=== PATIENT | female | born 1930 | race Caucasian/White ===

== ENCOUNTER 2018-01-28 08:47 | Inpatient (IN) | payer MEDICARE ==
[~2018-01-28] VITALS: Ht 152.4 cm; Wt 54.0 kg
[2018-01-28] VITALS (8 sets, daily range): BP systolic 126–197; BP diastolic 67–88; PULSE 81–87; RESP 15–19; TEMP 97.8–99.8; O2SAT 92–99
[2018-01-28] MEDS ORDERED: SODIUM CHLOR 0.9% 1000 ML INJ 1,000 ML IV ONE (09:00)
[2018-01-28] MEDS ORDERED: SODIUM CHLORIDE 0.9% FLUSH 10 ML FLUSH IVF PRN (09:00)
[2018-01-28] MEDS ORDERED: ONDANSETRON HCL 4 MG/2 ML VIAL IVP ONE (09:00)
[2018-01-28] MEDS ORDERED: HYDROmorphone HCL PF 1 MG/ML VIAL IVS ONE (09:00)
[2018-01-28] MEDS ORDERED: VERA80TA PO (09:01)
[2018-01-28] MEDS ORDERED: ASPI-516 PO (09:06)
[2018-01-28] MEDS ORDERED: HYDROmorphone HCL PF 0.5 MG/0.5 ML SYRINGE ONE (09:18)
--- NOTE | 2018-01-28 09:34 | PD ---
HPI Chief Complaint: Fall Time Seen by Provider: 08:59 Travel History International Travel<30 days: No Contact w/Intl Traveler<30days: No Traveled to known affect area: No History of Present Illness HPI 87-year-old female arrives by EMS. She reports a fall last night. She spent the night on the floor. She has severe right hip pain. EMS gave 6 mg of IV morphine which helped marginally. Onset sudden. Pain is constant and slightly worse with palpation/passive range of motion. PFSH Past Medical History Hx Anticoagulant Therapy: Yes (asa ) Cardiovascular Problems: Yes COPD: Yes Diminished Hearing: No Hypertension: Yes Medical other: Yes ([facility]) Respiratory: Yes (COPD) Thyroid Disease: Yes Tetanus Vaccination: > 5 Years Influenza Vaccination: Yes ?: Not Menopausal: Yes : 2 Para: 2 Past Surgical History Cardiac Surgery: Yes ( cardiac stent x1) Cholecystectomy: Yes Other Surgery: Yes (breast implants. ) Social History Alcohol Use: No Tobacco Use: No Substance Use: No Allergies-Medications (Allergen,Severity, Reaction): Coded Allergies: No Known Allergies (Unverified , 01/28/18) Reported Meds & Prescriptions Reported Meds & Active Scripts Active Reported Aspirin 81 Mg Chew 81 Mg PO DAILY Verapamil (Verapamil HCl) 80 Mg Tab 80 Mg PO DAILY Review of Systems Except as stated in HPI: all other systems reviewed are Neg General / Constitutional: No: Fever Physical Exam Narrative GENERAL: 87-year-old female moderate distress secondary to pain Vital Signs Date Time Temp Pulse Resp B/P (MAP) Pulse Ox O2 Delivery O2 Flow Rate FiO2 01/28/18 09:09 86 15 95 Room Air 01/28/18 09:03 18 95 Room Air 01/28/18 08:52 98.1 87 15 197/88 (124) 98 SKIN: Warm and dry. HEAD: Atraumatic. Normocephalic. EYES: Pupils equal and round. No scleral icterus. No injection or drainage. ENT: No nasal bleeding or discharge. Mucous membranes pink and moist. NECK: Trachea midline. No JVD. CARDIOVASCULAR: Regular rate and rhythm. RESPIRATORY: No accessory muscle use. Clear to auscultation. Breath sounds equal bilaterally. GASTROINTESTINAL: Abdomen soft, non-tender, nondistended. Hepatic and splenic margins not palpable. MUSCULOSKELETAL: Right hip is shortened and externally rotated and tender to palpation overlying the radial trochanter. There is 2+ dorsalis pedis bilaterally. NEUROLOGICAL: Awake and alert. No obvious cranial nerve deficits. Motor grossly within normal limits. Five out of 5 muscle strength in the arms and legs. Normal speech. PSYCHIATRIC: Appropriate mood and affect; insight and judgment normal. Data Data Last Documented VS Vital Signs Date Time Temp Pulse Resp B/P (MAP) Pulse Ox O2 Delivery O2 Flow Rate FiO2 01/28/18 09:09 86 15 95 Room Air 01/28/18 08:52 98.1 197/88 (124) Orders Orders Electrocardiogram (01/28/18 08:59) Complete Blood Count With Diff (01/28/18 08:59) Comprehensive Metabolic Panel (01/28/18 08:59) Prothrombin Time / Inr (Pt) (01/28/18 08:59) Act Partial Throm Time (Ptt) (01/28/18 08:59) Urinalysis - C+S If Indicated (01/28/18 08:59) Chest, Single Ap (01/28/18 08:59) Hip, Uni(Ap&Lat) W Ap Pelvis (01/28/18 08:59) Iv Access Insert/Monitor (01/28/18 08:59) Oximetry (01/28/18 08:59) Ecg Monitoring (01/28/18 08:59) Ondansetron Inj (Zofran Inj) (01/28/18 09:00) Sodium Chloride 0.9% Flush (Ns Flush) (01/28/18 09:00) Hydromorphone Pf Inj (Dilaudid Pf Inj) (01/28/18 09:00) Diet Npo (01/29/18 Breakfast) Sodium Chlor 0.9% 1000 Ml Inj (Ns 1000 M (01/28/18 09:00) Creatine Kinase (Cpk) (01/28/18 08:59) ^ Straight Catheter (01/28/18 08:59) Hydromorphone Pf Inj (Dilaudid Pf Inj) (01/28/18 09:18) Ct Brain W/O Iv Contrast(Rout) (01/28/18 10:17) CKMB (01/28/18 09:48) CKMB% (01/28/18 09:48) Admit Order (Ed Use Only) (01/28/18 10:35) Labs Laboratory Tests Test 01/28/18 08:48 01/28/18 09:48 Urine Color YELLOW Urine Turbidity CLEAR Urine pH 5.0 Urine Specific [place] 1.027 Urine Protein TRACE mg/dL Urine Glucose (UA) NEG mg/dL Urine Ketones TRACE mg/dL Urine Occult Blood NEG Urine Nitrite NEG Urine Bilirubin NEG Urine Urobilinogen 2.0 MG/DL Urine Leukocyte Esterase NEG Urine RBC 1 /hpf Urine WBC LESS THAN 1 /hpf Urine Mucus FEW /lpf Microscopic Urinalysis Comment CATH-CULT NOT IND White Blood Count 11.3 TH/MM3 Red Blood Count 4.98 MIL/MM3 Hemoglobin 14.1 GM/DL Hematocrit 42.5 % Mean Corpuscular Volume 85.4 FL Mean Corpuscular Hemoglobin 28.3 PG Mean Corpuscular Hemoglobin Concent 33.1 % Red Cell Distribution Width 15.5 % Platelet Count 214 TH/MM3 Mean Platelet Volume 9.2 FL Neutrophils (%) (Auto) 83.7 % Lymphocytes (%) (Auto) 6.7 % Monocytes (%) (Auto) 9.1 % Eosinophils (%) (Auto) 0.1 % Basophils (%) (Auto) 0.4 % Neutrophils # (Auto) 9.5 TH/MM3 Lymphocytes # (Auto) 0.8 TH/MM3 Monocytes # (Auto) 1.0 TH/MM3 Eosinophils # (Auto) 0.0 TH/MM3 Basophils # (Auto) 0.1 TH/MM3 CBC Comment DIFF FINAL Differential Comment Prothrombin Time 11.0 SEC Prothromb Time International Ratio 1.1 RATIO Activated Partial Thromboplast Time 28.6 SEC Blood Urea Nitrogen 19 MG/DL Creatinine 0.71 MG/DL Random Glucose 138 MG/DL Total Protein 7.2 GM/DL Albumin 3.6 GM/DL Calcium Level 9.2 MG/DL Alkaline Phosphatase 108 U/L Aspartate Amino Transf (AST/SGOT) 164 U/L Alanine Aminotransferase (ALT/SGPT) 74 U/L Total Bilirubin 1.7 MG/DL Sodium Level 142 MEQ/L Potassium Level 3.7 MEQ/L Chloride Level 104 MEQ/L Carbon Dioxide Level 31.9 MEQ/L Anion Gap 6 MEQ/L Estimat Glomerular Filtration Rate 78 ML/MIN Total Creatine Kinase 397 U/L Creatine Kinase MB 9.5 NG/ML Creatine Kinase MB % 2.4 % [facility] Medical Decision Making Medical Screen Exam Complete: Yes Emergency Medical Condition: Yes Medical Record Reviewed: Yes Differential Diagnosis Fracture, dislocation, metabolic abnormality Narrative Course CBC & BMP Diagram 01/28/18 09:48 Total Protein 7.2, Albumin 3.6, Calcium Level 9.2, Alkaline Phosphatase 108, Aspartate Amino Transf (AST/SGOT) 164 H, Alanine Aminotransferase (ALT/SGPT) 74 H, Total Bilirubin 1.7 H Last Impressions Head CT 01/28/18 1017 Signed Impressions: Service Date/Time: Sunday, January 28, 2018 10:09 - CONCLUSION: 1. No acute intracranial abnormality seen. 2. Atrophy. 3. Suspected small vessel ischemic change in the white matter. 4. Old lacunar infarct. Jacob Wolff MD Hip and Pelvis X-Ray 01/28/18 0859 Signed Impressions: Service Date/Time: Sunday, January 28, 2018 09:25 - CONCLUSION: Intertrochanteric right femoral neck fracture. Jacob Wolff MD Chest X-Ray 01/28/18 0859 Signed Impressions: Service Date/Time: Sunday, January 28, 2018 09:29 - CONCLUSION: Suspected medial areas of bibasilar atelectasis. Jacob Wolff MD The patient has a right intertrochanteric hip fracture and will be admitted to the medicine service. Operative repair per discretion of orthopedic service EKG shows sinus rhythm at a rate [address] changes noted Discussed with family medicine residency doctor, Dr. De La Rosa Diagnosis Primary Impression: Hip fracture Qualified Codes: S72.001A - Fracture of unspecified part of neck of right femur, initial encounter for closed fracture Additional Impression: Fall Qualified Codes: W19.XXXA - Unspecified fall, initial encounter Admitting Information Admitting Physician Requests: Admit Dwayne Valles MD January 28, 2018 09:34
--- NOTE | 2018-01-28 09:54 | RADRPT ---
EXAM DATE/TIME: 01/28/2018 09:25 [facility] COMPARISON: No previous studies available for comparison. INDICATIONS : Right hip pain after fall. MEDICAL HISTORY : Hypertension. Chronic obstructive pulmonary disease. SURGICAL HISTORY : Cholecystectomy. Cardiac stent. ENCOUNTER: Initial ACUITY: 2 days PAIN SCORE: 10/10 LOCATION: Right hip. FINDINGS: There is an intertrochanteric right femoral neck fracture. The hip joint is normally aligned. CONCLUSION: Intertrochanteric right femoral neck fracture. Jacob Wolff MD on January 28, 2018 at 9:44 Board Certified Radiologist. This report was verified electronically.
--- NOTE | 2018-01-28 09:56 | RADRPT ---
EXAM DATE/TIME: 01/28/2018 09:29 [facility] COMPARISON: HIP RIGHT (AP&LAT 2/3VWS) W AP PELVIS, January 28, 2018, 9:25. INDICATIONS : Trauma. Post fall. MEDICAL HISTORY : Hypertension. Chronic obstructive pulmonary disease. SURGICAL HISTORY : Cholecystectomy. Cardiac stent. ENCOUNTER: Initial ACUITY: 2 days PAIN SCORE: 0/10 LOCATION: Bilateral chest FINDINGS: The heart size is normal. There is linear density at the medial bases bilaterally likely to atelectas is. No effusions are seen. There is a healed fracture deformity at the right proximal humerus. CONCLUSION: Suspected medial areas of bibasilar atelectasis. Jacob Wolff MD on January 28, 2018 at 9:52 Board Certified Radiologist. This report was verified electronically.
[2018-01-28 10:02] LABS: AUTOMATED NEUTROPHIL # 9.5 TH/MM3 (1.8-7.7); BASOPHIL # 0.1 TH/MM3 (0-0.2); BASOPHIL % 0.4 % (0.0-2.0); EOSINOPHIL % 0.1 % (0.0-4.0); HEMATOCRIT 42.5 % (35.0-46.0); HEMOGLOBIN 14.1 GM/DL (11.6-15.3); LYMPH % 6.7 % (9.0-44.0); LYMPHOCYTE # 0.8 TH/MM3 (1.0-4.8); MEAN CELL VOLUME 85.4 FL (80.0-100.0); MEAN CORPUSCULAR HEMOGLOBIN 28.3 PG (27.0-34.0); MEAN CORPUSCULAR HGB CONC 33.1 % (32.0-36.0); MEAN PLATELET VOLUME 9.2 FL (7.0-11.0); MONO % 9.1 % (0.0-8.0); NEUT % 83.7 % (16.0-70.0); PLATELET COUNT 214 TH/MM3 (150-450); RED BLOOD COUNT 4.98 MIL/MM3 (4.00-5.30); RED CELL DISTRIBUTION WIDTH 15.5 % (11.6-17.2); WHITE BLOOD COUNT 11.3 TH/MM3 (4.0-11.0)
[2018-01-28 10:06] LABS: BILIRUBIN, URINE NEG (NEG); BLOOD, URINE NEG (NEG); GLUCOSE,URINE NEG (NEG); KETONE, URINE TRACE mg/dL (NEG); MUCUS URINE FEW /lpf (OCC); NITRITE,URINE NEG (NEG); URINE COLOR YELLOW (YELLW/STRAW); URINE LEUKOCYTE ESTERASE NEG (NEG)
[2018-01-28 10:12] LABS: INTERNATIONAL NORMALIZED RATIO 1.1 RATIO
[2018-01-28 10:21] LABS: ALBUMIN 3.6 GM/DL (3.4-5.0); ALT (GPT) 74 U/L (10-53); AST (GOT) 164 U/L (15-37); BICARBONATE 31.9 MEQ/L (21.0-32.0); BLOOD UREA NITROGEN 19 MG/DL (7-18); CALCIUM 9.2 MG/DL (8.5-10.1); CHLORIDE 104 MEQ/L (98-107); CREATININE 0.71 MG/DL (0.50-1.00); GLOMERULAR FILTRATION RATE 78 ML/MIN (>89); GLUCOSE,RANDOM 138 MG/DL (74-106); SODIUM (NA) 142 MEQ/L (136-145)
[2018-01-28 10:24] LABS: ALKALINE PHOSPHATASE 108 U/L (45-117); TOTAL BILIRUBIN ADULT 1.7 MG/DL (0.2-1.0); TOTAL PROTEIN 7.2 GM/DL (6.4-8.2)
--- NOTE | 2018-01-28 10:32 | RADRPT ---
EXAM DATE/TIME: 01/28/2018 10:09 [facility] COMPARISON: No previous studies available for comparison. INDICATIONS : Trauma, fall today. RADIATION DOSE: 56.35 CTDIvol (mGy) MEDICAL HISTORY : Hypertension. SURGICAL HISTORY : None. ENCOUNTER: Initial ACUITY: 1 day PAIN SCALE: 4/10 LOCATION: Bilateral head TECHNIQUE: Multiple contiguous axial images were obtained of the head. Using automated exposure control and adj ustment of the mA and/or kV according to patient size, radiation dose was kept as low as reasonably a chievable to obtain optimal diagnostic quality images. DICOM format image data is available electro nically for review and comparison. FINDINGS: CEREBRUM: The ventricles and cortical sulci are widened. There is decreased density seen throughout the cerebra l white matter. There are old lacunar infarcts at the right basal ganglia and in the periventricular white matter. No evidence of midline shift, mass lesion, hemorrhage or acute infarction. No extra-a xial fluid collections are seen. POSTERIOR FOSSA: The cerebellum and brainstem are intact. The 4th ventricle is midline. The cerebellopontine angle i s unremarkable. EXTRACRANIAL: The visualized portion of the orbits is intact. SKULL: The calvaria is intact. No evidence of skull fracture. CONCLUSION: 1. No acute intracranial abnormality seen. 2. Atrophy. 3. Suspected small vessel ischemic change in the white matter. 4. Old lacunar infarct. Jacob Wolff MD on January 28, 2018 at 10:27 Board Certified Radiologist. This report was verified electronically.
--- NOTE | 2018-01-28 11:08 | HHI.HP ---
[facility] Service Family Medicine Primary Care Physician Unknown Admission Diagnosis Fall/Right Hip fracture Diagnoses: Chief Complaint: fall International Travel<30 Days: No Contact w/Intl Traveler<30days: No History of Present Illness 87-year-old female with history of recently diagnosed Parkinson's disease, hypertension, hypothyroidism presents after a fall. Patient reports she fell yesterday afternoon, she was reaching over to hang something up on a oral hygienist, she states she lost her balance and fell down. She fell on the carpet floor. Fell on her right side. Did hit her head as well, and she was initially worried about that. States she fell around 1 PM yesterday and was lying on the floor until this morning. She states his son tried calling, but she can reach the phone. She states she eventually called over to the phone and called the ambulance. She states currently she is having pain in her right leg. She denies losing consciousness. Denies any dizziness or chest pain before the fall. She states she does have trouble with balance, and was recently diagnosed with Parkinson's, although she states her neurologist told her she has had it for 3 years now. Has had a right shoulder fracture in the past. When she was on the floor, she did urinate and have a bowel movement. Does have a history of urinary incontinence. (Les De La Rosa MD R2) Review of Systems Constitutional: DENIES: Fatigue, Fever, Weight loss, Chills, Dizziness Eyes: DENIES: Vision loss Ears, nose, mouth, throat: DENIES: Throat pain, Ear Pain Respiratory: DENIES: Cough, Sputum production, Shortness of breath Cardiovascular: DENIES: Chest pain, Syncope Gastrointestinal: DENIES: Abdominal pain, Black stools, Bloody stools, Constipation, Diarrhea, Nausea, Vomiting Genitourinary: DENIES: Urinary frequency, Urinary incontinence, Dysuria Musculoskeletal: COMPLAINS OF: Joint pain, Muscle aches, DENIES: Back pain Integumentary: DENIES: Abnormal pigmentation, Rash Neurologic: COMPLAINS OF: Headache, Poor Balance, DENIES: Seizures, Tremor Psychiatric: DENIES: Confusion, Mood changes, Depression, Hallucinations (Les De La Rosa MD R2) Past Family Social History Past Medical History Parkinson's disease Hypothyroidism HTN Dr. Kwok neurologist. PCP Dr. Botello Past Surgical History Thyroidectomy-2014 Cholecystectomy Cardiac stentx1 Reported Medications Reported Meds & Active Scripts Active Reported Aspirin 81 Mg Chew 81 Mg PO DAILY Verapamil (Verapamil HCl) 80 Mg Tab 80 Mg PO DAILY (Les De La Rosa MD R2) Allergies: Coded Allergies: No Known Allergies (Unverified , 01/28/18) Active Ordered Medications Active Medications Hydromorphone HCl (Dilaudid Pf Inj) 0.5 mg ONCE ONCE IVS Last administered on at 09:39; Admin Dose 0.5 MG; Start 01/28/18 at 09:00; Stop 01/28/18 at 09:02 ; Status DC Hydromorphone HCl (Dilaudid Pf Inj) 0.5 mg STK-MED ONCE .ROUTE; Start 01/28/18 at 09:18; Stop 01/28/18 at 09:19; Status DC Ondansetron HCl (Zofran Inj) 4 mg ONCE ONCE IVP Last administered on 01/28/18at 09:38; Admin Dose 4 MG; Start 01/28/18 at 09:00; Stop 01/28/18 at 09:02; Status DC Sodium Chloride 1,000 ml @ 999 mls/hr BOLUS ONCE IV Last administered on at 09:37; Admin Dose 999 MLS/HR; Start 01/28/18 at 09:00; Stop 01/28/18 at 10:00 ; Status DC Sodium Chloride (NS Flush) 2 ml UNSCH PRN IVF; Start 01/28/18 at 09:00 Family History Mother-breast cancer Father-unknown Social History Lives by self in 3-story room-moving to [place] soon 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 SKIN: No rashes, ecchymoses or lesions. Cool and dry. HEAD: Atraumatic. Normocephalic. No temporal or scalp tenderness. EYES: Pupils equal round and reactive. Extraocular motions intact. No scleral icterus. No injection or drainage. ENT: Throat without erythema, tonsillar hypertrophy or exudate. Uvula midline. Airway patent. Dry mucus membranes NECK: Trachea midline. No JVD or lymphadenopathy. Supple, nontender. CARDIOVASCULAR: Regular rate and rhythm without murmurs, gallops, or rubs. RESPIRATORY: Clear to auscultation. Breath sounds equal bilaterally. No wheezes , rales, or rhonchi. GASTROINTESTINAL: Abdomen soft, non-tender, nondistended. No hepato-splenomegaly , or palpable masses. No guarding. MUSCULOSKELETAL: Right lower extremity shortened and externally rotated. No cyanosis or edema. Pulses intact bilaterally. NEUROLOGICAL: Awake and alert. Motor and sensory grossly within normal limits. Normal speech. Laboratory Laboratory Tests Test 01/28/18 08:48 01/28/18 09:48 Urine Color YELLOW Urine Turbidity CLEAR Urine pH 5.0 Urine Specific [place] 1.027 Urine Protein TRACE Urine Glucose (UA) NEG Urine Ketones TRACE Urine Occult Blood NEG Urine Nitrite NEG Urine Bilirubin NEG Urine Urobilinogen 2.0 Urine Leukocyte Esterase NEG Urine RBC 1 Urine WBC LESS THAN 1 Urine Mucus FEW Microscopic Urinalysis Comment CATH-CULT NOT IND White Blood Count 11.3 Red Blood Count 4.98 Hemoglobin 14.1 Hematocrit 42.5 Mean Corpuscular Volume 85.4 Mean Corpuscular Hemoglobin 28.3 Mean Corpuscular Hemoglobin Concent 33.1 Red Cell Distribution Width 15.5 Platelet Count 214 Mean Platelet Volume 9.2 Neutrophils (%) (Auto) 83.7 Lymphocytes (%) (Auto) 6.7 Monocytes (%) (Auto) 9.1 Eosinophils (%) (Auto) 0.1 Basophils (%) (Auto) 0.4 Neutrophils # (Auto) 9.5 Lymphocytes # (Auto) 0.8 Monocytes # (Auto) 1.0 Eosinophils # (Auto) 0.0 Basophils # (Auto) 0.1 CBC Comment DIFF FINAL Differential Comment Prothrombin Time 11.0 Prothromb Time International Ratio 1.1 Activated Partial Thromboplast Time 28.6 Blood Urea Nitrogen 19 Creatinine 0.71 Random Glucose 138 Total Protein 7.2 Albumin 3.6 Calcium Level 9.2 Alkaline Phosphatase 108 Aspartate Amino Transf (AST/SGOT) 164 Alanine Aminotransferase (ALT/SGPT) 74 Total Bilirubin 1.7 Sodium Level 142 Potassium Level 3.7 Chloride Level 104 Carbon Dioxide Level 31.9 Anion Gap 6 Estimat Glomerular Filtration Rate 78 Total Creatine Kinase 397 Creatine Kinase MB 9.5 Creatine Kinase MB % 2.4 (Les De La Rosa MD R2) Result Diagram: 01/28/1848 01/28/18 0948 Imaging Last Impressions Head CT 01/28/18 1017 Signed Impressions: Service Date/Time: Sunday, January 28, 2018 10:09 - CONCLUSION: 1. No acute intracranial abnormality seen. 2. Atrophy. 3. Suspected small vessel ischemic change in the white matter. 4. Old lacunar infarct. Jacob Wolff MD Hip and Pelvis X-Ray 01/28/18858 Signed Impressions: Service Date/Time: Sunday, January 28, 2018 09:25 - CONCLUSION: Intertrochanteric right femoral neck fracture. Jacob Wolff MD Chest X-Ray 01/28/18858 Signed Impressions: Service Date/Time: Sunday, January 28, 2018 09:29 - CONCLUSION: Suspected medial areas of bibasilar atelectasis. Jacob Wolff MD (Les De La Rosa MD R2) Caprini VTE Risk Assessment Caprini VTE Risk Assessment: Mod/High Risk (score >= 2) Caprini Risk Assessment Model Point Value = 1 Point Value = 2 Point Value = 3 Point Value = 5 Age 41-60 Minor surgery BMI > 25 kg/m2 Swollen legs Varicose veins or History of unexplained or recurrent spontaneous Oral contraceptives or hormone replacement Sepsis (< 1 month) Serious lung disease, including pneumonia (< 1 month) Abnormal pulmonary function Acute myocardial infarction Congestive heart failure (< 1 month) History of inflammatory bowel disease Medical patient at bed rest Age 61-74 Arthroscopic surgery Major open surgery (> 45 min) Laparoscopic surgery (> 45 min) Malignancy Confined to bed (> 72 hours) Immobilizing plaster cast Central venous access Age >= 75 History of VTE Family history of VTE Factor V Leiden Prothrombin [id number] Lupus anticoagulant Anticardiolipin antibodies Elevated serum homocysteine Heparin-induced thrombocytopenia Other congenital or acquired thrombophilia Stroke (< 1 month) Elective arthroplasty Hip, pelvis, or leg fracture Acute spinal cord injury (< 1 month) Prophylaxis Regimen Total Risk Factor Score Risk Level Prophylaxis Regimen 0-1 Low Early ambulation 2 Moderate Order ONE of the following: *Sequential Compression Device (SCD) *Heparin 5000 units SQ BID 3-4 Higher Order ONE of the following medications: *Heparin 5000 units SQ TID *Enoxaparin/Lovenox 40 mg SQ daily (WT < 150 kg, CrCl > 30 mL/min) *Enoxaparin/Lovenox 30 mg SQ daily (WT < 150 kg, CrCl > 10-29 mL/min) *Enoxaparin/Lovenox 30 mg SQ BID (WT < 150 kg, CrCl > 30 mL/min) AND/OR *Sequential Compression Device (SCD) 5 or more Highest Order ONE of the following medications: *Heparin 5000 units SQ TID (Preferred with Epidurals) *Enoxaparin/Lovenox 40 mg SQ daily (WT < 150 kg, CrCl > 30 mL/min) *Enoxaparin/Lovenox 30 mg SQ daily (WT < 150 kg, CrCl > 10-29 mL/min) *Enoxaparin/Lovenox 30 mg SQ BID (WT < 150 kg, CrCl > 30 mL/min) AND *Sequential Compression Device (SCD) (eLs De La Rosa MD R2) Assessment and Plan Assessment and Plan 87-year-old female with history of Parkinson's disease, hypertension, hypothyroidism presents after a fall. Found to have right hip fracture. Will admit for management. Code Status Full Discussed Condition With Dr. Valles (Les De La Rosa MD R2) Problem List: (1) Fracture, intertrochanteric, right femur ICD Codes: S72.141A - Displaced intertrochanteric fracture of right femur, initial encounter for closed fracture Status: Acute Plan: Patient status post fall yesterday afternoon. Hip/pelvis x-ray shows intertrochanteric right femoral neck fracture. Leg is shortened and externally rotated on exam. Pulses intact. Sensation intact. -Consult orthopedics, appreciate recs -Tylenol, morphine PRN pain -PT/OT -NPO for possible intervention -SCDs (2) Fall ICD Codes: W19.XXXA - Unspecified fall, initial encounter Status: Acute Plan: Patient fell yesterday at 1 PM. Was approximately on the ground for about 18 hours. CPK on admission was 397. BUN 19, creatinine 0.71. History of Parkinson's disease Head CT was wnl -Normal saline at 1.5 maintenance. -Monitor CPK and kidney function -Neuro checks -PT/OT (3) Parkinson disease ICD Codes: G20 - Parkinson's disease Status: Chronic Plan: Continue home Sinemet (4) HTN (hypertension) ICD Codes: I10 - Essential (primary) hypertension Status: Chronic Plan: Continue home meds, verapamil (5) Hypothyroid ICD Codes: E03.9 - Hypothyroidism, unspecified Status: Chronic Plan: Continue home synthroid. Check TSH (6) FEN Status: Acute Plan: Fluids: NS @ 150mls/hr Electrolyte: wnl, replace PRN Nutrition: NPO if procedure today; otherwise NPO after midnight DVT ppx: SCDs in anticipation of surgery (Les De La Rosa MD R2) Problem List: (1) Fracture, intertrochanteric, right femur ICD Codes: S72.141A - Displaced intertrochanteric fracture of right femur, initial encounter for closed fracture Status: Acute Plan: Patient status post fall yesterday afternoon. Hip/pelvis x-ray shows intertrochanteric right femoral neck fracture. Leg is shortened and externally rotated on exam. Pulses intact. Sensation intact. -Consult orthopedics, appreciate recs -Tylenol, morphine PRN pain -PT/OT -NPO for possible intervention -SCDs (2) Fall ICD Codes: W19.XXXA - Unspecified fall, initial encounter Status: Acute Plan: Patient fell yesterday at 1 PM. Was approximately on the ground for about 18 hours. CPK on admission was 397. BUN 19, creatinine 0.71. History of Parkinson's disease Head CT was wnl -Normal saline at 1.5 maintenance. -Monitor CPK and kidney function -Neuro checks -PT/OT (3) Parkinson disease ICD Codes: G20 - Parkinson's disease Status: Chronic Plan: Continue home Sinemet (4) HTN (hypertension) ICD Codes: I10 - Essential (primary) hypertension Status: Chronic Plan: Continue home meds, verapamil (5) Hypothyroid ICD Codes: E03.9 - Hypothyroidism, unspecified Status: Chronic Plan: Continue home synthroid. Check TSH (6) FEN Status: Acute Plan: Fluids: NS @ 150mls/hr Electrolyte: wnl, replace PRN Nutrition: NPO if procedure today; otherwise NPO after midnight DVT ppx: SCDs in anticipation of surgery I have reviewed the patients past medical/surgical and social histories and updated as appropriate. Parts of this note were created using [employer] voice recognition software program. While efforts were made to correct any mistakes made by this software, some mistakes, errors, and omissions may remain in the final note that were not caught when the note was originally created. Plan of care was discussed and agreed upon with the patient as specifically documented in the above note. An opportunity to ask questions with explanation was provided. Medications were reviewed and discussed as appropriate including side effects and risks vs. benefit. Pt. was instructed should any symptoms worsen he should call for an MERY appointment or report to the emergency department for further evaluation. Patient voiced understanding on all information reviewed and discussed. (Scar Whitten MD) Physician Certification 2 Midnight Certification Type: Admission for Inpatient Services Order for Inpatient Services The services are ordered in accordance with Medicare regulations or non- Medicare payer requirements, as applicable. In the case of services not specified as inpatient-only, they are appropriately provided as inpatient services in accordance with the 2-midnight benchmark. Estimated LOS (days): 3 days is the estimated time the patient will need to remain in the hospital, assuming treatment plan goals are met and no additional complications. Post-Hospital Plan: SNF (Les De La Rosa MD R2) Problem Qualifiers (1) Fall: Qualified Codes: W19.XXXA - Unspecified fall, initial encounter (2) HTN (hypertension): Qualified Codes: I10 - Essential (primary) hypertension (3) Hypothyroid: Qualified Codes: E89.0 - Postprocedural hypothyroidism Les De La Rosa MD R2 January 28, 2018 11:08 Scar Whitten MD January 30, 2018 11:19
[2018-01-28] MEDS ORDERED: ONDANSETRON HCL 4 MG/2 ML VIAL IVP PRN (11:30)
[2018-01-28] MEDS ORDERED: BISACODYL 10 MG SUPP RECTAL PRN (11:30)
[2018-01-28] MEDS ORDERED: SODIUM CHLORIDE 0.9% FLUSH 10 ML FLUSH IV FLUSH PRN (11:30)
[2018-01-28] MEDS ORDERED: ACETAMINOPHEN 325 MG TAB PO PRN (11:30)
[2018-01-28] MEDS ORDERED: NALOXONE HCL 0.4 MG/ML AMP IV PUSH PRN (11:30)
[2018-01-28] MEDS ORDERED: SENNOSIDES 8.6 MG TAB PO PRN (11:30)
[2018-01-28] MEDS ORDERED: VERAPAMIL HCL 80 MG TAB PO SCH (11:45)
[2018-01-28] MEDS: SODIUM CHLOR 0.9% 1000 ML INJ 1,000 ML IV SCH ×2 (12:07→19:55)
[2018-01-28] MEDS ORDERED: LEVO75TA3 PO (12:18)
[2018-01-28] MEDS ORDERED: TOLT60TA PO (12:18)
[2018-01-28] MEDS ORDERED: VERA360C PO (12:18)
[2018-01-28] MEDS ORDERED: SINE25TA PO (12:18)
[2018-01-28] MEDS: CARBIDOPA/LEVODOPA 25 MG/100 MG TAB PO SCH ×2 (14:20→18:14)
[2018-01-28] MEDS: TOLTERODINE TARTRATE 2 MG CAP LA PO SCH (14:54)
[2018-01-28] MEDS ORDERED: RESP: ALBUTEROL 2.5 MG/3 ML NEB (PRN) NEB (15:00)
[2018-01-28] MEDS: MORPHINE SULFATE 4 MG/ML INJ IV PUSH PRN (16:41)
[2018-01-28] MEDS: SODIUM CHLORIDE 0.9% FLUSH 10 ML FLUSH IV FLUSH SCH (19:57)
[2018-01-28] MEDS: DOCUSATE SODIUM 50 MG/SENNA 8.6 MG TAB PO SCH (19:58)
[2018-01-28] MEDS ORDERED: CHLORHEXIDINE GLUCONATE 2 % 1 PACK (2 CLOTHS) TOPICAL PRN (22:15)
[2018-01-28] MEDS ORDERED: POVIDONE IODINE 5% (ANTISEPSIS KIT) 4 APPLICATIONS EACH NARE PRN (22:15)
[2018-01-28] MEDS ORDERED: SODIUM CHLORID 0.9% 500 ML IV PRN (22:15)
[2018-01-28] MEDS ORDERED: LACTATED RINGER'S 1000 ML IV PRN (22:15)
[2018-01-29] VITALS (7 sets, daily range): BP systolic 121–211; BP diastolic 62–88; PULSE 81–99; RESP 16–20; TEMP 97.7–99.4; O2SAT 92–96
[2018-01-29] MEDS: SODIUM CHLOR 0.9% 1000 ML INJ 1,000 ML IV SCH ×5 (00:49→19:47)
[2018-01-29] MEDS: MORPHINE SULFATE 4 MG/ML INJ IV PUSH PRN ×3 (01:57→21:47)
[2018-01-29] MEDS: LEVOTHYROXINE SODIUM 75 MCG TAB PO SCH (05:52)
[2018-01-29] MEDS: TOLTERODINE TARTRATE 2 MG CAP LA PO SCH (08:44)
[2018-01-29] MEDS: CARBIDOPA/LEVODOPA 25 MG/100 MG TAB PO SCH ×3 (08:45→18:17)
[2018-01-29] MEDS: VERAPAMIL HCL 180 MG SUSTAINED RELEASE TAB PO SCH (08:45)
[2018-01-29] MEDS: DOCUSATE SODIUM 50 MG/SENNA 8.6 MG TAB PO SCH ×2 (08:45→19:46)
[2018-01-29] MEDS: SODIUM CHLORIDE 0.9% FLUSH 10 ML FLUSH IV FLUSH SCH ×2 (08:49→19:46)
[2018-01-29 10:30] LABS: AUTOMATED NEUTROPHIL # 8.2 TH/MM3 (1.8-7.7); BASOPHIL % 0.3 % (0.0-2.0); EOSINOPHIL # 0.1 TH/MM3 (0-0.4); EOSINOPHIL % 1.2 % (0.0-4.0); HEMATOCRIT 38.6 % (35.0-46.0); HEMOGLOBIN 12.7 GM/DL (11.6-15.3); LYMPH % 6.1 % (9.0-44.0); LYMPHOCYTE # 0.6 TH/MM3 (1.0-4.8); MEAN CELL VOLUME 87.9 FL (80.0-100.0); MEAN CORPUSCULAR HGB CONC 32.9 % (32.0-36.0); MEAN PLATELET VOLUME 10.4 FL (7.0-11.0); MONO % 9.5 % (0.0-8.0); MONOCYTE # 0.9 TH/MM3 (0-0.9); NEUT % 82.9 % (16.0-70.0); PLATELET COUNT 134 TH/MM3 (150-450); RED BLOOD COUNT 4.39 MIL/MM3 (4.00-5.30); RED CELL DISTRIBUTION WIDTH 15.3 % (11.6-17.2); WHITE BLOOD COUNT 9.9 TH/MM3 (4.0-11.0)
[2018-01-29 11:09] LABS: ALBUMIN 2.9 GM/DL (3.4-5.0); ALKALINE PHOSPHATASE 127 U/L (45-117); ALT (GPT) 154 U/L (10-53); AST (GOT) 166 U/L (15-37); BICARBONATE 28.6 MEQ/L (21.0-32.0); BLOOD UREA NITROGEN 12 MG/DL (7-18); CALCIUM 8.3 MG/DL (8.5-10.1); CHLORIDE 110 MEQ/L (98-107); CREATININE 0.53 MG/DL (0.50-1.00); GLOMERULAR FILTRATION RATE 110 ML/MIN (>89); GLUCOSE,RANDOM 99 MG/DL (74-106); SODIUM (NA) 145 MEQ/L (136-145); TOTAL PROTEIN 6.5 GM/DL (6.4-8.2)
[2018-01-29] MEDS ORDERED: ONDANSETRON HCL 4 MG/2 ML VIAL IV PUSH ONE (12:00)
[2018-01-29] MEDS ORDERED: LIDOCAINE HCL 1% PF 5 ML SYRINGE OTHER ONE (12:00)
[2018-01-29] MEDS ORDERED: DEXAMETHASONE SOD PHOS 4 MG/ML VIAL IV ONE (12:00)
[2018-01-29] MEDS ORDERED: PHENYLEPH/NS 1000 MCG/10 ML SYR IV ONE (12:00)
[2018-01-29] MEDS ORDERED: ePHEDrine/NS 25 MG/5 ML SYRINGE IV ONE (12:00)
[2018-01-29] MEDS ORDERED: PROPOFOL 200 MG/20 ML AMP IV ONE (12:00)
--- NOTE | 2018-01-29 12:06 | HHI.FPPN ---
Subjective Remarks Patient states she is thirsty and is frustrated she can have nothing by mouth. Her pain is tolerable at this point with medication. She denies chest pain, nausea, vomiting, diarrhea. The patient states "I have nothing to live for, and if I could I would kill myself right now." She states she feels this way because she has Parkinson's disease and a fracture. She has family that wants to help move her to [place]. She is very sad at this time. (Urban Salvador MD R3) Objective Vitals Vital Signs Date Time Temp Pulse Resp B/P (MAP) Pulse Ox O2 Delivery O2 Flow Rate FiO2 01/29/18 11:32 98.5 90 20 121/67 (85) 93 01/29/18 10:10 92 Nasal Cannula 2.00 01/29/18 07:40 98.4 99 19 211/88 (129) 94 01/29/18 04:48 99.4 91 16 141/77 (98) 93 01/29/18 00:03 98.8 81 18 140/66 (90) 96 01/28/18 20:00 99.8 85 16 152/70 (97) 92 01/28/18 15:42 97.8 82 19 149/67 (94) 96 01/28/18 15:22 99 Nasal Cannula 2.00 01/28/18 12:30 97.8 78 133/67 (89) 99 I/O 01/28/18 01/28/18 01/28/18 01/29/18 01/29/18 01/29/18 07:00 15:00 23:00 07:00 15:00 23:00 Intake Total 1000 ml 1223 ml Balance 1000 ml 1223 ml Intake Oral 240 ml IV Total 1000 ml 983 ml # Voids 3 # Bowel Movements 0 0 (Urban Salvador MD R3) Result Diagram: 01/29/1841 01/29/18740 Objective Remarks GENERAL: This is a elderly female, in no acute distress. Resting comfortably. SKIN: No rashes, ecchymoses or lesions. Cool and dry. HEAD: Atraumatic. Normocephalic. No temporal or scalp tenderness. EYES: Pupils equal round and reactive. Extraocular motions intact. No scleral icterus. No injection or drainage. ENT: Throat without erythema, tonsillar hypertrophy or exudate. Uvula midline. Airway patent. Dry mucus membranes NECK: Trachea midline. No JVD or lymphadenopathy. Supple, nontender. CARDIOVASCULAR: Regular rate and rhythm without murmurs, gallops, or rubs. RESPIRATORY: Clear to auscultation. Breath sounds equal bilaterally. No wheezes , rales, or rhonchi. GASTROINTESTINAL: Abdomen soft, non-tender, nondistended. No hepato-splenomegaly , or palpable masses. No guarding. MUSCULOSKELETAL: Right lower extremity shortened and externally rotated. No cyanosis or edema. Pulses intact bilaterally. NEUROLOGICAL: Awake and alert 3. Motor and sensory grossly within normal limits. Normal speech. Psychiatric: Sad and expressing suicidal ideation and hopelessness (Urban Salvador MD R3) A/P Assessment and Plan 87-year-old female with history of Parkinson's disease, hypertension, hypothyroidism presents after a fall. Found to have right hip fracture. Will admit for orthopedic consult. Currently having suicidal ideation, psychiatry consulted (Urban Salvador MD R3) Problem List: (1) Fracture, intertrochanteric, right femur ICD Codes: S72.141A - Displaced intertrochanteric fracture of right femur, initial encounter for closed fracture Status: Acute Plan: Hip/pelvis x-ray shows intertrochanteric right femoral neck fracture. Leg is shortened and externally rotated on exam. Pulses intact. Sensation intact. -Consult orthopedics, appreciate recs N.p.o. for procedure today. -Tylenol, morphine PRN pain -PT/OT -SCDs (2) Suicidal ideation ICD Codes: R45.851 - Suicidal ideations Status: Acute Plan: Patient currently expressing hopelessness and suicidal ideation; she states she would kill herself now if she could Psychiatry consulted Patient refuses electrodynamicist consult at this time (3) Fall ICD Codes: W19.XXXA - Unspecified fall, initial encounter Status: Acute Plan: Was approximately on the ground for about 18 hours. CPK on admission was 397. BUN 19, creatinine 0.71. History of Parkinson's disease Head CT was wnl -Normal saline at 1.5 maintenance. -Monitor CPK and kidney function -Neuro checks -PT/OT (4) Parkinson disease ICD Codes: G20 - Parkinson's disease Status: Chronic Plan: Continue home Sinemet (5) HTN (hypertension) ICD Codes: I10 - Essential (primary) hypertension Status: Chronic Plan: Continue home meds, verapamil (6) Hypothyroid ICD Codes: E03.9 - Hypothyroidism, unspecified Status: Chronic Plan: Continue home synthroid. Check TSH (7) FEN Status: Acute Plan: Fluids: NS @ 150mls/hr Electrolyte: wnl, replace PRN Nutrition: NPO for procedure today DVT ppx: SCDs in anticipation of surgery (Urban Salvador MD R3) Problem List: (1) Fracture, intertrochanteric, right femur ICD Codes: S72.141A - Displaced intertrochanteric fracture of right femur, initial encounter for closed fracture Status: Acute Plan: Hip/pelvis x-ray shows intertrochanteric right femoral neck fracture. Leg is shortened and externally rotated on exam. Pulses intact. Sensation intact. -Consult orthopedics, appreciate recs N.p.o. for procedure today. -Tylenol, morphine PRN pain -PT/OT -SCDs (2) Suicidal ideation ICD Codes: R45.851 - Suicidal ideations Status: Acute Plan: Patient currently expressing hopelessness and suicidal ideation; she states she would kill herself now if she could Psychiatry consulted Patient refuses electrodynamicist consult at this time 1:1 Sitter, discussed with nurse (3) Fall ICD Codes: W19.XXXA - Unspecified fall, initial encounter Status: Acute Plan: Was approximately on the ground for about 18 hours. CPK on admission was 397. BUN 19, creatinine 0.71. History of Parkinson's disease Head CT was wnl -Normal saline at 1.5 maintenance. -Monitor CPK and kidney function -Neuro checks -PT/OT (4) Parkinson disease ICD Codes: G20 - Parkinson's disease Status: Chronic Plan: Continue home Sinemet (5) HTN (hypertension) ICD Codes: I10 - Essential (primary) hypertension Status: Chronic Plan: Continue home meds, verapamil (6) Hypothyroid ICD Codes: E03.9 - Hypothyroidism, unspecified Status: Chronic Plan: Continue home synthroid. Check TSH (7) FEN Status: Acute Plan: Fluids: NS @ 150mls/hr Electrolyte: wnl, replace PRN Nutrition: NPO for procedure today DVT ppx: SCDs in anticipation of surgery I have reviewed the patients past medical/surgical and social histories and updated as appropriate. Parts of this note were created using dragon voice recognition software program. While efforts were made to correct any mistakes made by this software, some mistakes, errors, and omissions may remain in the final note that were not caught when the note was originally created. Plan of care was discussed and agreed upon with the patient as specifically documented in the above note. An opportunity to ask questions with explanation was provided. Medications were reviewed and discussed as appropriate including side effects and risks vs. benefit. Pt. was instructed should any symptoms worsen he should call for an MERY appointment or report to the emergency department for further evaluation. Patient voiced understanding on all information reviewed and discussed. (Scar Whitten MD) Problem Qualifiers (1) Fall: Qualified Codes: W19.XXXA - Unspecified fall, initial encounter (2) HTN (hypertension): Qualified Codes: I10 - Essential (primary) hypertension (3) Hypothyroid: Qualified Codes: E89.0 - Postprocedural hypothyroidism Urban Salvador MD R3 January 29, 2018 12:06 Scar Whitten MD January 30, 2018 11:38
--- NOTE | 2018-01-29 13:13 | PD.CONS ---
HPI Service Orthopedic Surgeons Consult Requested By Reason for Consult Right basicervical/intertrochanteric femur fracture Primary Care Physician Unknown Admission Diagnosis Fall/Right Hip fracture Diagnoses: Chief Complaint: Right hip pain History of Present Illness 87-year-old female with history of recently diagnosed Parkinson's disease, hypertension, hypothyroidism presents after a fall. Patient reports she fell yesterday afternoon, she was reaching over to hang something up on a steel hanger, she states she lost her balance and fell down. Did hit her head as well , and she was initially worried about that. States she fell around 1 PM on the day prior to admission and was lying on the floor until morning of admission. She states her son tried calling, but she couldn't reach the phone. She states she eventually called over to the phone and called the ambulance. She states currently she is having pain in her right leg. She denies losing consciousness. Denies any dizziness or chest pain before the fall. She states she does have trouble with balance. Review of Systems Constitutional: DENIES: Fever Endocrine: DENIES: Polyuria Eyes: DENIES: Blurred vision Ears, nose, mouth, throat: DENIES: Throat pain Respiratory: DENIES: Cough Cardiovascular: DENIES: Chest pain Gastrointestinal: DENIES: Abdominal pain Genitourinary: DENIES: Abnormal vaginal bleeding Musculoskeletal: COMPLAINS OF: Joint pain, Muscle aches Integumentary: DENIES: Rash Hematologic/lymphatic: DENIES: Bruising Immunologic/allergic: DENIES: Eczema Neurologic: DENIES: Abnormal gait Psychiatric: DENIES: Anxiety Past Family Social History Past Medical History Parkinson's disease Hypothyroidism HTN Past Surgical History Thyroidectomy-2014 Cholecystectomy Cardiac stentx1 Reported Medications Please see full chart for list but patient is on aspirin 81 mg daily. No other blood thinner. Allergies: Coded Allergies: No Known Allergies (Unverified , 01/28/18) Active Ordered Medications Current Medications Medications (Trade) Dose Ordered Sig/Jeanette Route Start Time Stop Time Status Last Admin Sodium Chloride 1,000 ml @ 150 mls/hr Q6H40M IV 01/28/18 11:29 01/29/18 08:49 (NS Flush) 2 ml UNSCH PRN IV FLUSH 01/28/18 11:30 (NS Flush) 2 ml BID IV FLUSH 01/28/18 21:00 01/29/18 08:49 (Zofran Inj) 4 mg Q6H PRN IVP 01/28/18 11:30 (Tylenol) 650 mg Q6H PRN PO 01/28/18 11:30 (Morphine Inj) 1 mg Q3H PRN IV PUSH 01/28/18 11:30 01/29/18 08:44 (Narcan Inj) 0.4 mg UNSCH PRN IV PUSH 01/28/18 11:30 (Lorraine-Colace) 1 tab BID PO 01/28/18 21:00 01/29/18 08:45 (Milk Of Magnesia Liq) 30 ml Q12H PRN PO 01/28/18 11:30 (Senokot) 17.2 mg Q12H PRN PO 01/28/18 11:30 (Dulcolax Supp) 10 mg DAILY PRN RECTAL 01/28/18 11:30 (Lactulose Liq) 30 ml DAILY PRN PO 01/28/18 11:30 (Sinemet 25-100 Mg) 0.5 tab TID PO 01/28/18 13:00 01/29/18 08:45 (Synthroid) 75 mcg DAILY@0600 PO 01/29/18 06:00 01/29/18 05:52 (Isoptin Sr) 360 mg DAILY PO 01/29/18 09:00 01/29/18 08:45 (Detrol La) 2 mg DAILY PO 01/28/18 15:00 01/29/18 08:44 (Albuterol Neb) 2.5 mg Q4HR NEB PRN NEB 01/28/18 15:00 Lactated Ringer's 1,000 ml @ 30 mls/hr Q24H PRN IV 01/28/18 22:15 01/31/18 22:14 Sodium Chloride 500 ml @ 30 mls/hr [id number] PRN IV 01/28/18 22:15 01/31/18 22:14 (Betadine 5% Antisepsis Kit) 1 applic EXTERNAL RELATIONS MANAGER PRN EACH NARE 01/28/18 22:15 01/31/18 22:14 (Chlorhexidine 2% Cloth) 3 pack EXTERNAL RELATIONS MANAGER PRN TOPICAL 01/28/18 22:15 01/31/18 22:14 Reported Meds & Active Scripts Active Reported Tolterodine (Tolterodine Tartrate) 1 Mg Tab 1 Mg PO BID Levothyroxine (Levothyroxine Sodium) 75 Mcg Tab 75 Mcg PO DAILY Sinemet (Carbidopa-Levodopa) 25-100 Mg Tab 0.5 Tab PO TID 14 Days After 14 days increase to 1 tablet three times a day Verapamil SR (Verapamil HCl) 360 Mg Cap 360 Mg PO DAILY Aspirin 81 Mg Chew 81 Mg PO DAILY Family History Noncontributory Social History Denies tobacco use Physical Exam Vital Signs Vital Signs Date Time Temp Pulse Resp B/P (MAP) Pulse Ox O2 Delivery O2 Flow Rate FiO2 01/29/18 11:32 98.5 90 20 121/67 (85) 93 01/29/18 10:10 92 Nasal Cannula 2.00 01/29/18 07:40 98.4 99 19 211/88 (129) 94 01/29/18 04:48 99.4 91 16 141/77 (98) 93 01/29/18 00:03 98.8 81 18 140/66 (90) 96 01/28/18 20:00 99.8 85 16 152/70 (97) 92 01/28/18 15:42 97.8 82 19 149/67 (94) 96 01/28/18 15:22 99 Nasal Cannula 2.00 Physical Exam Awake, alert, no acute distress Normocephalic Pupils equal No JVD Moist mucous membranes Nonlabored respirations on nasal cannula Regular rate Soft nontender abdomen Right lower extremity: Positive logroll. Unable to assess range of motion due to pain. Patient appears neurovascularly intact distally with positive EHL, FHL , dorsiflexion and plantarflexion. Sensation is grossly intact. Brisk cap refill. Bilateral upper extremities and left lower extremity: No significant deformities or tenderness palpation. Full passive range of motion throughout. Patient appears grossly neurovascularly intact. Brisk cap refill. No rash Normal affect Laboratory Laboratory Tests Test 01/29/18 07:41 White Blood Count 9.9 Red Blood Count 4.39 Hemoglobin 12.7 Hematocrit 38.6 Mean Corpuscular Volume 87.9 Mean Corpuscular Hemoglobin 29.0 Mean Corpuscular Hemoglobin Concent 32.9 Red Cell Distribution Width 15.3 Platelet Count 134 Mean Platelet Volume 10.4 Neutrophils (%) (Auto) 82.9 Lymphocytes (%) (Auto) 6.1 Monocytes (%) (Auto) 9.5 Eosinophils (%) (Auto) 1.2 Basophils (%) (Auto) 0.3 Neutrophils # (Auto) 8.2 Lymphocytes # (Auto) 0.6 Monocytes # (Auto) 0.9 Eosinophils # (Auto) 0.1 Basophils # (Auto) 0.0 CBC Comment DIFF FINAL Differential Comment Blood Urea Nitrogen 12 Creatinine 0.53 Random Glucose 99 Total Protein 6.5 Albumin 2.9 Calcium Level 8.3 Alkaline Phosphatase 127 Aspartate Amino Transf (AST/SGOT) 166 Alanine Aminotransferase (ALT/SGPT) 154 Total Bilirubin 1.0 Sodium Level 145 Potassium Level 3.8 Chloride Level 110 Carbon Dioxide Level 28.6 Anion Gap 6 Estimat Glomerular Filtration Rate 110 Total Creatine Kinase 369 Creatine Kinase MB 8.1 Creatine Kinase MB % 2.2 Result Diagram: 01/29/18 0741 01/29/18 0741 Imaging Last [address] 01/28/18 1017 Signed Impressions: Service Date/Time: Sunday, January 28, 2018 10:09 - CONCLUSION: 1. No acute intracranial abnormality seen. 2. Atrophy. 3. Suspected small vessel ischemic change in the white matter. 4. Old lacunar infarct. Jacob Wolff MD Hip and Pelvis X-Ray 01/28/18 0859 Signed Impressions: Service Date/Time: Sunday, January 28, 2018 09:25 - CONCLUSION: Intertrochanteric right femoral neck fracture. Jacob Wolff MD Chest X-Ray 01/28/1859 Signed Impressions: Service Date/Time: Sunday, January 28, 2018 09:29 - CONCLUSION: Suspected medial areas of bibasilar atelectasis. Jacob Wolff MD Assessment & Plan Assessment and Plan 87-year-old female who presents after a fall with a right basicervical/ intertrochanteric femur fracture. Options of management were discussed with the patient and her family. Given her displaced femur fracture, I recommended operative intervention in the form of intramedullary nail of her right femur fracture. Risks of surgery including but not limited to: Infection, nonunion or malunion, hardware malposition or failure, neurovascular injury, persistent hip pain and/or stiffness, prominent hardware causing pain, possible need for further surgery, and other unforeseen comp occasions were all discussed with the patient. At this time she has consented to the procedure. Patient has been n.p.o. since midnight with plan for surgery later today. Postoperative course was discussed with the patient and her family as well. I did discuss that most often patients are allowed at least partial weightbearing postoperatively depending on fixation during surgery. I will plan to try to mobilize with physical therapy tomorrow. She will also be placed on anticoagulation. I did discuss with the patient that these often take several months to fully heal somewhere between 3-6 months. Sonya Bey MD January 29, 2018 13:13
[2018-01-29] MEDS ORDERED: GENTAMICIN SULFATE 80 MG/2 ML VIAL ONE (14:18)
--- NOTE | 2018-01-29 14:23 | PD.PSY.CON ---
Provisional Diagnosis Admission Date January 28, 2018 at 10:41 [place] I. Adjustment disorder with depressed mood, history of depression [place] II. Deferred [place] III. Hypertension, hypothyroidism, hip fracture, Parkinson's disease History of Present Illness Service Psychiatry Consult Requested By Medical team Reason for Consult Depression Primary Care Physician Unknown HPI The patient is a 87-year-old woman, domiciled in [facility], is , retired, mother of 2 kids, one her son committed suicide, with psychiatric history of depression, no previous psychiatric hospitalizations, no previous suicide attempts, with history of hypertension, hypothyroidism of recently diagnosed Parkinson's disease, hypertension, hypothyroidism presents after a fall. She was diagnosed with fracture, intertrochanteric, right femur. Displaced intertrochanteric fracture of right femur, initial encounter for closed fracture. Patient is scheduled for orthopedic surgery this afternoon. She has been expressing suicidal ideation. Consulted to psychiatry for this reason. On psychiatric evaluation today I find a patient that is irritable, reporting frustration due to the delay of her surgery. The patient reports that she has been very hungry, not eaten since yesterday, waiting for a surgery "that never happens". Patient reports that this is the reason she felt so depressed "and at some point I also had felt I want to join my my son", which she denies suicidal intentions. She is future oriented, she says that she wants to get better to go to live with her son. Patient reports poor sleep , low level of energy. She is oriented 3, no fluctuation of consciousness, no attention deficit present. She denies visual and auditory hallucinations. She denies the use of alcohol and illegal drugs. Review of Systems Constitutional: DENIES: Diaphoretic episodes, Fatigue, Fever, Weight gain, Weight loss, Chills, Dizziness, Change in appetite, Night Sweats Endocrine: DENIES: Abnorml menstrual pattern, Heat/cold intolerance, Polydipsia , Polyuria, Polyphagia Eyes: DENIES: Blurred vision, Diplopia, Eye inflammation, Eye pain, Vision loss , Photosensitivity, Double Vision Ears, nose, mouth, throat: DENIES: Tinnitus, Hearing loss, Vertigo, Nasal discharge, Oral lesions, Throat pain, Hoarseness, Ear Pain, Running Nose, Epistaxis, Sinus Pain, Toothache, Odynophagia Respiratory: DENIES: Apneas, Cough, Snoring, Wheezing, Hemoptysis, Sputum production, Shortness of breath Cardiovascular: DENIES: Chest pain, Palpitations, Syncope, Dyspnea on Exertion , PND, Lower Extremity Edema, Orthopnea, Claudication Gastrointestinal: DENIES: Abdominal pain, Black stools, Bloody stools, Constipation, Diarrhea, Nausea, Vomiting, Difficulty Swallowing, Anorexia Genitourinary: DENIES: Abnormal vaginal bleeding, Dysmenorrhea, Dyspareunia, Sexual dysfunction, Urinary frequency, Urinary incontinence, Urgency, Hematuria , Dysuria, Nocturia, Vaginal discharge Musculoskeletal: DENIES: Joint pain, Muscle aches, Stiffness, Joint Swelling, Back pain, Neck pain Integumentary: DENIES: Abnormal pigmentation, Pruritus, Rash, Nail changes, Breast masses, Breast skin changes, Nipple discharge Hematologic/lymphatic: DENIES: Bruising, Lymphadenopathy Immunologic/allergic: DENIES: Eczema, Urticaria Neurologic: DENIES: Abnormal gait, Headache, Localized weakness, Paresthesias, Seizures, Speech Problems, Tremor, Poor Balance Psychiatric: COMPLAINS OF: Depression, DENIES: Anxiety, Confusion, Mood changes , Hallucinations, Agitation, Suicidal Ideation, Homicidal Ideation, Delusions Past Family Social History Coded Allergies: No Known Allergies (Unverified , 01/28/18) Reported Medications Tolterodine (Tolterodine) 1 Mg Tab, 1 MG PO BID for Urinary Symptom Managemen, # 60 TAB 0 Refills 01/28/18 Levothyroxine (Levothyroxine) 75 Mcg Tab, 75 MCG PO DAILY for Thyroid, #30 TAB 0 Refills 01/28/18 Carbidopa-Levodopa (Sinemet) 25-100 Mg Tab, 0.5 TAB PO TID for Parkinson Disease Mgmt for 14 Days, #90 TAB 0 Refills After 14 days increase to 1 tablet three times a day 01/28/18 Verapamil SR (Verapamil SR) 360 Mg Cap, 360 MG PO DAILY, #30 CAP 0 Refills 01/28/18 Aspirin (Aspirin) 81 Mg Chew, 81 MG PO DAILY, TAB 0 Refills 01/28/18 Discontinued Reported Medications Verapamil (Verapamil) 80 Mg Tab, 80 MG PO DAILY, #60 TAB 0 Refills 01/28/18 Current Medications Medications (Trade) Dose Ordered Sig/Jeanette Route Start Time Stop Time Status Last Admin Sodium Chloride 1,000 ml @ 150 mls/hr Q6H40M IV 01/28/18 11:29 01/29/18 08:49 (NS Flush) 2 ml UNSCH PRN IV FLUSH 01/28/18 11:30 (NS Flush) 2 ml BID IV FLUSH 01/28/18 21:00 01/29/18 08:49 (Zofran Inj) 4 mg Q6H PRN IVP 01/28/18 11:30 (Tylenol) 650 mg Q6H PRN PO 01/28/18 11:30 (Morphine Inj) 1 mg Q3H PRN IV PUSH 01/28/18 11:30 01/29/18 08:44 (Narcan Inj) 0.4 mg UNSCH PRN IV PUSH 01/28/18 11:30 (Lorraine-Colace) 1 tab BID PO 01/28/18 21:00 01/29/18 08:45 (Milk Of Magnesia Liq) 30 ml Q12H PRN PO 01/28/18 11:30 (Senokot) 17.2 mg Q12H PRN PO 01/28/18 11:30 (Dulcolax Supp) 10 mg DAILY PRN RECTAL 01/28/18 11:30 (Lactulose Liq) 30 ml DAILY PRN PO 01/28/18 11:30 (Sinemet 25-100 Mg) 0.5 tab TID PO 01/28/18 13:00 01/29/18 08:45 (Synthroid) 75 mcg DAILY@0600 PO 01/29/18 06:00 01/29/18 05:52 (Isoptin Sr) 360 mg DAILY PO 01/29/18 09:00 01/29/18 08:45 (Detrol La) 2 mg DAILY PO 01/28/18 15:00 01/29/18 08:44 (Albuterol Neb) 2.5 mg Q4HR NEB PRN NEB 01/28/18 15:00 Lactated Ringer's 1,000 ml @ 30 mls/hr Q24H PRN IV 01/28/18 22:15 01/31/18 22:14 Sodium Chloride 500 ml @ 30 mls/hr [id number] PRN IV 01/28/18 22:15 01/31/18 22:14 (Betadine 5% Antisepsis Kit) 1 applic CORN CHIP MAKER PRN EACH NARE 01/28/18 22:15 01/31/18 22:14 (Chlorhexidine 2% Cloth) 3 pack CORN CHIP MAKER PRN TOPICAL 01/28/18 22:15 01/31/18 22:14 Family Psych History Patient has a son who committed suicide Social History She was born in [place], she lives alone in [facility], she is , Patient's Strengths (min. 2) Good family support Physical Exam Patient is hypoactive, but no EPS, no withdrawal symptoms Vital Signs Vital Signs Date Time Temp Pulse Resp B/P (MAP) Pulse Ox O2 Delivery O2 Flow Rate FiO2 01/29/18 11:32 98.5 90 20 121/67 (85) 93 01/29/18 10:10 Nasal Cannula 2.00 I/O 01/29/18 01/29/18 01/30/18 08:00 16:00 00:00 Intake Total 1223 ml Balance 1223 ml Lab Results Test 01/29/18 07:41 White Blood Count 9.9 TH/MM3 Red Blood Count 4.39 MIL/MM3 Hemoglobin 12.7 GM/DL Hematocrit 38.6 % Mean Corpuscular Volume 87.9 FL Mean Corpuscular Hemoglobin 29.0 PG Mean Corpuscular Hemoglobin Concent 32.9 % Red Cell Distribution Width 15.3 % Platelet Count 134 TH/MM3 Mean Platelet Volume 10.4 FL Neutrophils (%) (Auto) 82.9 % Lymphocytes (%) (Auto) 6.1 % Monocytes (%) (Auto) 9.5 % Eosinophils (%) (Auto) 1.2 % Basophils (%) (Auto) 0.3 % Neutrophils # (Auto) 8.2 TH/MM3 Lymphocytes # (Auto) 0.6 TH/MM3 Monocytes # (Auto) 0.9 TH/MM3 Eosinophils # (Auto) 0.1 TH/MM3 Basophils # (Auto) 0.0 TH/MM3 CBC Comment DIFF FINAL Differential Comment Blood Urea Nitrogen 12 MG/DL Creatinine 0.53 MG/DL Random Glucose 99 MG/DL Total Protein 6.5 GM/DL Albumin 2.9 GM/DL Calcium Level 8.3 MG/DL Alkaline Phosphatase 127 U/L Aspartate Amino Transf (AST/SGOT) 166 U/L Alanine Aminotransferase (ALT/SGPT) 154 U/L Total Bilirubin 1.0 MG/DL Sodium Level 145 MEQ/L Potassium Level 3.8 MEQ/L Chloride Level 110 MEQ/L Carbon Dioxide Level 28.6 MEQ/L Anion Gap 6 MEQ/L Estimat Glomerular Filtration Rate 110 ML/MIN Total Creatine Kinase 369 U/L Creatine Kinase MB 8.1 NG/ML Creatine Kinase MB % 2.2 % Assessment & Plan Problem List: (1) Adjustment disorder with depressed mood ICD Codes: F43.21 - Adjustment disorder with depressed mood Assessment & Plan: On psychiatric evaluation the patient reports frustration, irritability, anxiety and sadness related with current medical situation and the "delay" of her surgery. Patient has expressed suicidal ideation, and they wish to join her son and her , but she denies suicidal intentions or plan. Patient seems to be distressed and having frequent mood swings, but she is future oriented, and can identify protective factors, such as going to live with her living son. Patient has an increased risk of delirium due to her age, and the nature of her fracture and surgery. She may benefit of a low dose of Seroquel at bedtime, 12.5-25 mg to help her with behavioral control and also to prevent delirium. Patient does not meet criteria for involuntary psychiatric admission. He does not need a sitter, but the least close observation. I will follow-up. Assessment & Plan Estimated LOS: days Duong Contreras MD January 29, 2018 14:23
[2018-01-29] MEDS ORDERED: ACETAMINOPHEN 1000 MG/100 ML 100 ML IV ONE (14:44)
[2018-01-29] MEDS ORDERED: VANCOMYCIN HCL 1000 MG VIAL ONE (15:18)
[2018-01-29] MEDS ORDERED: ceFAZolin 2 GM PREMIX 50 ML ONE (15:18)
--- NOTE | 2018-01-29 16:27 | PD.OP ---
cc: Sonya Bey MD Operative Report Date of Surgery: January 29, 2018 Preoperative Diagnosis: Closed right intertrochanteric femur fracture Postoperative Diagnosis: Same Procedure: Intramedullary nail right intertrochanteric femur fracture Anesthesia: General Surgeon: Sonya Bey High Speed Warper Tender(s): None Operation and Findings: EBL: 100 cc Complications: None Specimens: None Indications for procedure: Patient is an 87-year-old female who presented to the hospital after a trip and fall. Patient was found to have a closed right intertrochanteric femur fracture. Recommendation for intramedullary nail of her right intertrochanteric femur fracture. Risks of surgery including but not limited to: Infection, nonunion or malunion, hardware malposition or failure, neurovascular injury, persistent hip pain and/or stiffness, possible need for further surgery, periprosthetic fracture, and other unforeseen comp occasions were discussed with the patient. At this time she did consent to the above- mentioned procedure. Description of procedure: Patient was brought back to the operating room where general anesthesia then ensued. Patient was then carefully positioned supine on the fracture table with all bony prominences well-padded. Patient was prepped and draped in standard sterile fashion. Preoperative antibiotics were given within 1 hour of incision. A timeout was was performed to identify the correct patient, side, site and procedure to be performed. The intertrochanteric femur fracture was then reduced with the use of traction and rotation. A small approximately 1-2 inch incision was made just proximal and posterior to the greater trochanter. Sharp dissection through the skin, subcutaneous tissue and fascia was performed. A starting guidewire was then placed into the tip of the greater trochanter and verified on both AP and lateral radiographs. This was then advanced to the lesser trochanteric region. An opening reamer was then utilized to allow access to the femoral canal and advanced to the lesser trochanteric region. A Synthes TFN 11 mm diameter nail was then advanced into the femur and past the fracture site. This was then advanced into appropriate position on AP and lateral radiographs. A lateral based guide was then used for the proximal blade. A small lateral based incision was made through the skin, subcutaneous tissue and fascia to allow the guide to be placed down to the lateral aspect of the proximal femur. A guidewire was then placed into the proximal femur into the femoral neck and advanced to the femoral head in a center center position on AP and lateral radiographs. This was then measured, reamed and subsequently a proximal blade placed. This was again verified to be in appropriate position on both AP and lateral radiographs in a center center position in the femoral head. The proximal locking screw was then advanced and then backed off a half of turn to allow for dynamic compression. The lateral guide was then placed through the jig for the distal locking screw. Again a lateral based incision was made through the skin, subcutaneous tissue and fascia. The guide was placed down to the lateral cortex of the femur. This was drilled, measured and subsequently a distal locking screw placed. the insertion handle and jig was then removed. X- rays were then obtained which I am sure the fracture was an appropriate alignment and reduction and hardware was in appropriate position. The incisions were thoroughly irrigated with normal saline laden with gentamicin. The deep tissue and fascia was then closed with interrupted Vicryl suture and the subcutaneous tissue with interrupted Vicryl suture as well. The skin was then closed with neli and sterile dressings applied. Patient was then carefully moved off the fracture table onto a hospital bed. She was then awoken from general anesthesia without consultation. Disposition: Patient will be partial weightbearing 50% to the right lower extremity. Plan will be for mobilization with physical therapy starting on postop day 1. Patient will be started on Lovenox for anticoagulation. Sonya Bey MD January 29, 2018 16:27
[2018-01-29] MEDS ORDERED: Post-op Orders (for Pharmacy) XX ONE (16:30)
[2018-01-29] MEDS ORDERED: SODIUM CHLORIDE 0.9% FLUSH 10 ML FLUSH IV FLUSH PRN (16:30)
[2018-01-29] MEDS ORDERED: DO NOT ADM ANY ANTICOAGULANT DRUGS PRN (16:41)
--- NOTE | 2018-01-29 18:44 | RADRPT ---
EXAM DATE/TIME: 01/29/2018 16:07 [facility] COMPARISON: HIP RIGHT (AP&LAT 2/3VWS) W AP PELVIS, January 28, 2018, 9:25. INDICATIONS : Right troch nail. MEDICAL HISTORY : Hypertension. Chronic obstructive pulmonary disease. Arthritis. Parkinson's. SURGICAL HISTORY : Coronary artery stent. Cholecystectomy. ENCOUNTER: Subsequent ACUITY: 2 days PAIN SCORE: Non-responsive. LOCATION: Right hip. FINDINGS: A two view examination of the right hip was performed. There is a short intramedullary buck at the pro ximal femoral shaft and a intertrochanteric fixation nail with a helical blade through the femoral ne ck and head successful reducing intertrochanteric femoral neck fracture. CONCLUSION: Successful ORIF. Jacob Wolff MD on January 29, 2018 at 18:38 Board Certified Radiologist. This report was verified electronically.
[2018-01-30] VITALS (7 sets, daily range): BP systolic 117–177; BP diastolic 59–79; PULSE 69–91; RESP 17–18; TEMP 97.2–98.6; O2SAT 92–95
[2018-01-30] MEDS: SODIUM CHLOR 0.9% 1000 ML INJ 1,000 ML IV SCH ×3 (04:07→22:23)
[2018-01-30] MEDS: MORPHINE SULFATE 4 MG/ML INJ IV PUSH PRN (04:14)
[2018-01-30] MEDS ORDERED: ENOXAPARIN SODIUM 40 MG/0.4 ML SYRINGE SQ SCH (05:00)
[2018-01-30] MEDS: LEVOTHYROXINE SODIUM 75 MCG TAB PO SCH (06:12)
--- NOTE | 2018-01-30 07:53 | PD.ORT.PN ---
Subjective Subjective Remarks Patient resting comfortably. Patient is refusing all needlesticks including labs and Lovenox injections Objective Vitals Vital Signs Date Time Temp Pulse Resp B/P (MAP) Pulse Ox O2 Delivery O2 Flow Rate FiO2 01/30/18 04:00 97.9 70 17 141/66 (91) 94 01/30/18 00:01 97.7 71 18 138/61 (86) 92 01/29/18 20:00 97.7 81 18 121/62 (81) 92 01/29/18 19:42 93 Nasal Cannula 2.00 01/29/18 18:15 98.0 86 16 118/57 (77) 93 Nasal Cannula 2 01/29/18 18:00 86 15 118/56 (76) 93 Nasal Cannula 2 01/29/18 17:30 89 15 141/64 (89) 92 Nasal Cannula 2 01/29/18 17:15 91 15 148/87 (107) 96 Nasal Cannula 2 01/29/18 16:45 96 15 140/78 (98) 92 Nasal Cannula 2 01/29/18 16:40 98.6 95 14 136/62 (86) 92 Nasal Cannula 4 01/29/18 11:32 98.5 90 20 121/67 (85) 93 01/29/18 10:10 92 Nasal Cannula 2.00 I/O 01/29/18 01/29/18 01/29/18 01/30/18 01/30/18 01/30/18 07:00 15:00 23:00 07:00 15:00 23:00 Intake Total 1223 ml 1050 ml 360 ml Output Total 100 ml Balance 1223 ml 950 ml 360 ml Intake Oral 240 ml 0 ml 360 ml IV Total 983 ml 50 ml Other 1000 ml Output Stool Total 0 ml Estimated Blood Loss 100 ml # Voids 3 5 3 # Bowel Movements 0 0 Result Diagram: 01/29/18 0741 01/29/18 0741 Objective Remarks Alert, no acute distress Right lower extremity: Dressings in place without any significant drainage. Neurovascular intact distally. Negative Homans. BCR Assessment & Plan Assessment and Plan 87-year-old female, POD#1 s/p IMN R intertroch 1. Partial weightbearing 50% right lower extremity 2. Physical therapy for mobilization. 3. Initially started on Lovenox, however patient refuses injections and therefore will switch to Xarelto 4. Likely will need placement upon discharge. Patient can follow-up in my office in 2 weeks Sonya Bey MD January 30, 2018 07:53
[2018-01-30] MEDS: SODIUM CHLORIDE 0.9% FLUSH 10 ML FLUSH IV FLUSH SCH ×2 (08:04→22:16)
[2018-01-30] MEDS: CARBIDOPA/LEVODOPA 25 MG/100 MG TAB PO SCH ×3 (08:04→18:28)
[2018-01-30] MEDS: MAGNESIUM HYDROXIDE SUSP 30 ML CUP PO PRN (08:04)
[2018-01-30] MEDS: TOLTERODINE TARTRATE 2 MG CAP LA PO SCH (08:04)
[2018-01-30] MEDS: DOCUSATE SODIUM 50 MG/SENNA 8.6 MG TAB PO SCH ×2 (08:04→22:17)
[2018-01-30] MEDS: VERAPAMIL HCL 180 MG SUSTAINED RELEASE TAB PO SCH (08:04)
[2018-01-30] MEDS ORDERED: PILL SPLITTER OTHER PRN (09:15)
[2018-01-30] MEDS: RIVAROXABAN 10 MG TAB PO SCH (09:20)
[2018-01-30] MEDS: traMADol HCL 50 MG TAB PO PRN ×2 (09:20→18:28)
[2018-01-30 10:02] LABS: AUTOMATED NEUTROPHIL # 10.9 TH/MM3 (1.8-7.7); BASOPHIL % 0.1 % (0.0-2.0); HEMATOCRIT 34.9 % (35.0-46.0); HEMOGLOBIN 11.4 GM/DL (11.6-15.3); LYMPH % 3.6 % (9.0-44.0); LYMPHOCYTE # 0.4 TH/MM3 (1.0-4.8); MEAN CELL VOLUME 87.5 FL (80.0-100.0); MEAN CORPUSCULAR HEMOGLOBIN 28.6 PG (27.0-34.0); MEAN CORPUSCULAR HGB CONC 32.6 % (32.0-36.0); MONO % 5.9 % (0.0-8.0); MONOCYTE # 0.7 TH/MM3 (0-0.9); NEUT % 90.4 % (16.0-70.0); PLATELET COUNT 143 TH/MM3 (150-450); RED BLOOD COUNT 3.98 MIL/MM3 (4.00-5.30); RED CELL DISTRIBUTION WIDTH 15.3 % (11.6-17.2)
--- NOTE | 2018-01-30 10:20 | HHI.FPPN ---
Subjective Remarks Patient seen and examined this morning. Postop day 1 from IM and right intratrochanteric fracture. Patient refused her blood draws this morning as well as her Lovenox injections. Orthopedic is changing her over to Xarelto. States her pain is well controlled. Denies any chest pain, shortness of breath , nausea/vomiting, abdominal pain. (Les D eLa Rosa MD R2) Objective Vitals Vital Signs Date Time Temp Pulse Resp B/P (MAP) Pulse Ox O2 Delivery O2 Flow Rate FiO2 01/30/18 07:50 97.2 69 17 177/77 (110) 95 01/30/18 04:00 97.9 70 17 141/66 (91) 94 01/30/18 00:01 97.7 71 18 138/61 (86) 92 01/29/18 20:00 97.7 81 18 121/62 (81) 92 01/29/18 19:42 93 Nasal Cannula 2.00 01/29/18 18:15 98.0 86 16 118/57 (77) 93 Nasal Cannula 2 01/29/18 18:00 86 15 118/56 (76) 93 Nasal Cannula 2 01/29/18 17:30 89 15 141/64 (89) 92 Nasal Cannula 2 01/29/18 17:15 91 15 148/87 (107) 96 Nasal Cannula 2 01/29/18 16:45 96 15 140/78 (98) 92 Nasal Cannula 2 01/29/18 16:40 98.6 95 14 136/62 (86) 92 Nasal Cannula 4 01/29/18 11:32 98.5 90 20 121/67 (85) 93 01/29/18 10:10 92 Nasal Cannula 2.00 I/O 01/29/18 01/29/18 01/29/18 01/30/18 01/30/18 01/30/18 07:00 15:00 23:00 07:00 15:00 23:00 Intake Total 1223 ml 1050 ml 360 ml Output Total 100 ml Balance 1223 ml 950 ml 360 ml Intake Oral 240 ml 0 ml 360 ml IV Total 983 ml 50 ml Other 1000 ml Output Stool Total 0 ml Estimated Blood Loss 100 ml # Voids 3 5 3 # Bowel Movements 0 0 (Les De La Rosa MD R2) Result Diagram: 01/30/18 0945 01/29/18 0741 Objective Remarks GENERAL: This is a elderly female, in no acute distress. Resting comfortably. CARDIOVASCULAR: Regular rate and rhythm without murmurs, gallops, or rubs. Systolic murmur present RESPIRATORY: Clear to auscultation. Diminished breath sounds in bases GASTROINTESTINAL: Abdomen soft, non-tender, nondistended. No hepato-splenomegaly , or palpable masses. No guarding. MUSCULOSKELETAL: RLE dressing in place, c/d/i. Neurovascularly intact. NEUROLOGICAL: Awake and alert 3. Motor and sensory grossly within normal limits. Normal speech. Procedures IMN right hip fx (Les De La Rosa MD R2) A/P Assessment and Plan 87-year-old female with history of Parkinson's disease, hypertension, hypothyroidism presents after a fall. Found to have right hip fracture. Will admit for orthopedic consult. Currently having suicidal ideation, psychiatry consulted Discharge Planning Pending ortho clerance Will likely need SNF upon discharge (Les De La Rosa MD R2) Problem List: (1) Fracture, intertrochanteric, right femur ICD Codes: S72.141A - Displaced intertrochanteric fracture of right femur, initial encounter for closed fracture Status: Acute Plan: Hip/pelvis x-ray shows intertrochanteric right femoral neck fracture. -Consult orthopedics, appreciate recs POD#1 from IMN -Tylenol, morphine PRN pain -PT/OT -Refused Lovenox, starting Xarelto (2) Suicidal ideation ICD Codes: R45.851 - Suicidal ideations Status: Acute Plan: Patient expressed hopelessness and suicidal ideation on 01/29 Psychiatry consulted -Recommended starting Seroquel at bedtime -Seroquel 12.5mg HS started Patient refuses medical secretary consult at this time (3) Fall ICD Codes: W19.XXXA - Unspecified fall, initial encounter Status: Acute Plan: Was approximately on the ground for about 18 hours. CPK on admission was 397. BUN 19, creatinine 0.71. History of Parkinson's disease Head CT was wnl CPK stable -Normal saline at 1.5 maintenance. -Neuro checks -PT/OT (4) Elevated LFTs ICD Codes: R79.89 - Other specified abnormal findings of blood chemistry Status: Acute Plan: AST 164 and ALT 74 on admission. Pt endorses occasional alcohol use. No history of liver disease ALT trending up. Labs pending today. -Follow lab values -May test for hepatitis and ultrasound if worsens. (5) Parkinson disease ICD Codes: G20 - Parkinson's disease Status: Chronic Plan: Continue home Sinemet (6) HTN (hypertension) ICD Codes: I10 - Essential (primary) hypertension Status: Chronic Plan: Continue home meds, verapamil (7) Hypothyroid ICD Codes: E03.9 - Hypothyroidism, unspecified Status: Chronic Plan: Continue home synthroid. TSH mildly elevated (8) FEN Status: Acute Plan: Fluids: NS @ 150mls/hr Electrolyte: wnl, replace PRN Nutrition: Regular diet DVT ppx: Xarelto (Les De La Rosa MD R2) Problem List: (1) Fracture, intertrochanteric, right femur ICD Codes: S72.141A - Displaced intertrochanteric fracture of right femur, initial encounter for closed fracture Status: Acute Plan: Hip/pelvis x-ray shows intertrochanteric right femoral neck fracture. -Consult orthopedics, appreciate recs POD#1 from IMN -Tylenol, morphine PRN pain -PT/OT -Refused Lovenox, starting Xarelto (2) Suicidal ideation ICD Codes: R45.851 - Suicidal ideations Status: Acute Plan: Patient expressed hopelessness and suicidal ideation on 01/29 Psychiatry consulted -Recommended starting Seroquel at bedtime -Seroquel 12.5mg HS started Patient refuses medical secretary consult at this time (3) Fall ICD Codes: W19.XXXA - Unspecified fall, initial encounter Status: Acute Plan: Was approximately on the ground for about 18 hours. CPK on admission was 397. BUN 19, creatinine 0.71. History of Parkinson's disease Head CT was wnl CPK stable -Normal saline at 1.5 maintenance. -Neuro checks -PT/OT (4) Elevated LFTs ICD Codes: R79.89 - Other specified abnormal findings of blood chemistry Status: Acute Plan: AST 164 and ALT 74 on admission. Pt endorses occasional alcohol use. No history of liver disease ALT trending up. Labs pending today. -Follow lab values -May test for hepatitis and ultrasound if worsens. (5) Parkinson disease ICD Codes: G20 - Parkinson's disease Status: Chronic Plan: Continue home Sinemet (6) HTN (hypertension) ICD Codes: I10 - Essential (primary) hypertension Status: Chronic Plan: Continue home meds, verapamil (7) Hypothyroid ICD Codes: E03.9 - Hypothyroidism, unspecified Status: Chronic Plan: Continue home synthroid. TSH mildly elevated (8) FEN Status: Acute Plan: Fluids: NS @ 150mls/hr Electrolyte: wnl, replace PRN Nutrition: Regular diet DVT ppx: Xarelto Patient was being noncompliant with labs today. We discussed with her about the importance of lab. She still stated that she was not going to do some of the blood work, even if we recommended for her to be completed. I have reviewed the patients past medical/surgical and social histories and updated as appropriate. Parts of this note were created using [employer] voice recognition software program. While efforts were made to correct any mistakes made by this software, some mistakes, errors, and omissions may remain in the final note that were not caught when the note was originally created. Plan of care was discussed and agreed upon with the patient as specifically documented in the above note. An opportunity to ask questions with explanation was provided. Medications were reviewed and discussed as appropriate including side effects and risks vs. benefit. Pt. was instructed should any symptoms worsen he should call for an MERY appointment or report to the emergency department for further evaluation. Patient voiced understanding on all information reviewed and discussed. (Scar Whitten MD) Problem Qualifiers (1) Fall: Qualified Codes: W19.XXXA - Unspecified fall, initial encounter (2) HTN (hypertension): Qualified Codes: I10 - Essential (primary) hypertension (3) Hypothyroid: Qualified Codes: E89.0 - Postprocedural hypothyroidism Les De La Rosa MD R2 January 30, 2018 10:20 Scar Whitten MD January 30, 2018 12:19
[2018-01-30 10:25] LABS: BICARBONATE 28.9 MEQ/L (21.0-32.0); CALCIUM 9.2 MG/DL (8.5-10.1); CREATININE 0.67 MG/DL (0.50-1.00)
--- NOTE | 2018-01-30 10:50 | EKG ---
Date Performed: 01/28/2018 Time Performed: 09:00:38 PTAGE: 87 years EKG: Sinus rhythm NONSPECIFIC T-WAVE ABNORMALITY BORDERLINE ECG INTERPRETATION BASED ON A DEFAULT AGE OF 40 YEARS NO PREVIOUS TRACING DOCTOR: Tyler Berry Interpretating Date/Time 01/30/2018 10:49:41
[2018-01-30 11:24] LABS: ALBUMIN 2.7 GM/DL (3.4-5.0); AST (GOT) 56 U/L (15-37); BICARBONATE 26.9 MEQ/L (21.0-32.0); BLOOD UREA NITROGEN 14 MG/DL (7-18); CALCIUM 8.9 MG/DL (8.5-10.1); CHLORIDE 107 MEQ/L (98-107); CREATININE 0.63 MG/DL (0.50-1.00); GLOMERULAR FILTRATION RATE 90 ML/MIN (>89); GLUCOSE,RANDOM 178 MG/DL (74-106); SODIUM (NA) 142 MEQ/L (136-145)
[2018-01-30 11:25] LABS: ALT (GPT) 83 U/L (10-53)
[2018-01-30 11:27] LABS: ALKALINE PHOSPHATASE 111 U/L (45-117); TOTAL BILIRUBIN ADULT 0.5 MG/DL (0.2-1.0); TOTAL PROTEIN 6.4 GM/DL (6.4-8.2)
[2018-01-30] MEDS: QUEtiapine FUMARATE 25 MG TAB PO SCH (22:17)
[2018-01-30] MEDS: LACTULOSE SYRUP 20 GM/30 ML CUP PO PRN (22:19)
[2018-01-31] VITALS (9 sets, daily range): BP systolic 161–189; BP diastolic 74–85; PULSE 71–92; RESP 17–19; TEMP 97.6–98.1; O2SAT 92–97
[2018-01-31] MEDS: traMADol HCL 50 MG TAB PO PRN ×3 (00:34→18:05)
[2018-01-31] MEDS: SODIUM CHLOR 0.9% 1000 ML INJ 1,000 ML IV SCH ×3 (06:41→19:29)
[2018-01-31] MEDS: LEVOTHYROXINE SODIUM 75 MCG TAB PO SCH (06:41)
[2018-01-31 06:47] LABS: HEMATOCRIT 29.8 % (35.0-46.0); HEMOGLOBIN 9.9 GM/DL (11.6-15.3); MEAN CELL VOLUME 87.8 FL (80.0-100.0); MEAN CORPUSCULAR HEMOGLOBIN 29.2 PG (27.0-34.0); MEAN CORPUSCULAR HGB CONC 33.3 % (32.0-36.0); MEAN PLATELET VOLUME 9.9 FL (7.0-11.0); PLATELET COUNT 143 TH/MM3 (150-450); RED BLOOD COUNT 3.39 MIL/MM3 (4.00-5.30); RED CELL DISTRIBUTION WIDTH 15.2 % (11.6-17.2); WHITE BLOOD COUNT 9.2 TH/MM3 (4.0-11.0)
[2018-01-31 07:12] LABS: ALBUMIN 2.3 GM/DL (3.4-5.0); AST (GOT) 28 U/L (15-37); BICARBONATE 28.4 MEQ/L (21.0-32.0); BLOOD UREA NITROGEN 13 MG/DL (7-18); CALCIUM 8.3 MG/DL (8.5-10.1); CHLORIDE 109 MEQ/L (98-107); CREATININE 0.45 MG/DL (0.50-1.00); GLOMERULAR FILTRATION RATE 132 ML/MIN (>89); GLUCOSE,RANDOM 104 MG/DL (74-106); SODIUM (NA) 144 MEQ/L (136-145)
[2018-01-31 07:14] LABS: ALT (GPT) 72 U/L (10-53)
[2018-01-31 07:16] LABS: ALKALINE PHOSPHATASE 83 U/L (45-117); TOTAL BILIRUBIN ADULT 0.4 MG/DL (0.2-1.0); TOTAL PROTEIN 5.4 GM/DL (6.4-8.2)
[2018-01-31] MEDS: VERAPAMIL HCL 180 MG SUSTAINED RELEASE TAB PO SCH (08:20)
[2018-01-31] MEDS: TOLTERODINE TARTRATE 2 MG CAP LA PO SCH (08:20)
[2018-01-31] MEDS: DOCUSATE SODIUM 50 MG/SENNA 8.6 MG TAB PO SCH ×2 (08:20→21:24)
[2018-01-31] MEDS: RIVAROXABAN 10 MG TAB PO SCH (08:21)
[2018-01-31] MEDS: CARBIDOPA/LEVODOPA 25 MG/100 MG TAB PO SCH ×3 (08:21→18:05)
[2018-01-31] MEDS: SODIUM CHLORIDE 0.9% FLUSH 10 ML FLUSH IV FLUSH SCH ×2 (08:27→21:00)
[2018-01-31] MEDS ORDERED: SIMETHICONE 80 MG CHEWABLE TAB CHEW ONE (10:00)
--- NOTE | 2018-01-31 11:12 | HHI.FPPN ---
Objective Vitals Vital Signs Date Time Temp Pulse Resp B/P (MAP) Pulse Ox O2 Delivery O2 Flow Rate FiO2 01/31/18 08:00 97.9 83 17 187/85 (119) 92 01/31/18 04:00 97.6 88 18 185/83 (117) 93 01/31/18 00:39 168/80 (109) 01/31/18 00:01 97.7 71 18 182/79 (113) 96 01/30/18 20:00 97.8 83 18 165/79 (107) 95 01/30/18 16:58 98.6 79 17 117/59 (78) 93 01/30/18 16:35 93 Nasal Cannula 2.00 01/30/18 12:01 98.1 91 18 149/63 (91) 93 I/O 01/30/18 01/30/18 01/30/18 01/31/18 01/31/18 01/31/18 07:00 15:00 23:00 07:00 15:00 23:00 Intake Total 360 ml 1665 ml 1241 ml Balance 360 ml 1665 ml 1241 ml Intake Oral 360 ml 960 ml 400 ml IV Total 705 ml 841 ml # Voids 3 6 3 # Bowel Movements 0 0 0 Result Diagram: 01/31/1861701/31/18617 Objective Remarks GENERAL: This is a elderly female, in no acute distress. Resting comfortably. CARDIOVASCULAR: Regular rate and rhythm without murmurs, gallops, or rubs. Systolic murmur present RESPIRATORY: Clear to auscultation. Diminished breath sounds in bases GASTROINTESTINAL: Abdomen soft, non-tender, nondistended. No hepato-splenomegaly , or palpable masses. No guarding. MUSCULOSKELETAL: RLE dressing in place, c/d/i. Neurovascularly intact. NEUROLOGICAL: Awake and alert 3. Motor and sensory grossly within normal limits. Normal speech. Procedures IMN right hip fx A/P Assessment and Plan 87-year-old female with history of Parkinson's disease, hypertension, hypothyroidism presents after a fall. Found to have right hip fracture. Will admit for orthopedic consult. Currently having suicidal ideation, psychiatry consulted Discharge Planning Pending ortho clerance Will likely need SNF upon discharge Problem List: (1) Fracture, intertrochanteric, right femur ICD Codes: S72.141A - Displaced intertrochanteric fracture of right femur, initial encounter for closed fracture Status: Acute Plan: Hip/pelvis x-ray shows intertrochanteric right femoral neck fracture. -Consult orthopedics, appreciate recs POD#1 from IMN -Tylenol, morphine PRN pain -PT/OT -Refused Lovenox, starting Xarelto (2) Suicidal ideation ICD Codes: R45.851 - Suicidal ideations Status: Acute Plan: Patient expressed hopelessness and suicidal ideation on 01/29 Psychiatry consulted -Recommended starting Seroquel at bedtime -Seroquel 12.5mg HS started Patient refuses customer relations coordinator consult at this time (3) Fall ICD Codes: W19.XXXA - Unspecified fall, initial encounter Status: Acute Plan: Was approximately on the ground for about 18 hours. CPK on admission was 397. BUN 19, creatinine 0.71. History of Parkinson's disease Head CT was wnl CPK stable -Normal saline at 1.5 maintenance. -Neuro checks -PT/OT (4) Elevated LFTs ICD Codes: R79.89 - Other specified abnormal findings of blood chemistry Status: Acute Plan: AST 164 and ALT 74 on admission. Pt endorses occasional alcohol use. No history of liver disease ALT trending up. Labs pending today. -Follow lab values -May test for hepatitis and ultrasound if worsens. (5) Parkinson disease ICD Codes: G20 - Parkinson's disease Status: Chronic Plan: Continue home Sinemet (6) HTN (hypertension) ICD Codes: I10 - Essential (primary) hypertension Status: Chronic Plan: Continue home meds, verapamil (7) Hypothyroid ICD Codes: E03.9 - Hypothyroidism, unspecified Status: Chronic Plan: Continue home synthroid. TSH mildly elevated (8) FEN Status: Acute Plan: Fluids: NS @ 150mls/hr Electrolyte: wnl, replace PRN Nutrition: Regular diet DVT ppx: Xarelto Patient was being noncompliant with labs today. We discussed with her about the importance of lab. She still stated that she was not going to do some of the blood work, even if we recommended for her to be completed. I have reviewed the patients past medical/surgical and social histories and updated as appropriate. Parts of this note were created using [employer] voice recognition software program. While efforts were made to correct any mistakes made by this software, some mistakes, errors, and omissions may remain in the final note that were not caught when the note was originally created. Plan of care was discussed and agreed upon with the patient as specifically documented in the above note. An opportunity to ask questions with explanation was provided. Medications were reviewed and discussed as appropriate including side effects and risks vs. benefit. Pt. was instructed should any symptoms worsen he should call for an MERY appointment or report to the emergency department for further evaluation. Patient voiced understanding on all information reviewed and discussed. Problem Qualifiers (1) Fall: Qualified Codes: W19.XXXA - Unspecified fall, initial encounter (2) HTN (hypertension): Qualified Codes: I10 - Essential (primary) hypertension (3) Hypothyroid: Qualified Codes: E89.0 - Postprocedural hypothyroidism Ernst Chun MD R1 January 31, 2018 11:12
--- NOTE | 2018-01-31 11:26 | RADRPT ---
EXAM DATE/TIME: 01/31/2018 10:25 [facility] COMPARISON: No previous studies available for comparison. INDICATIONS : Shortness of breath. MEDICAL HISTORY : Hypertension. Chronic obstructive pulmonary disease. Parkinson's SURGICAL HISTORY : Coronary artery stent. Cholecystectomy. ENCOUNTER: Subsequent ACUITY: 3 days PAIN SCORE: 0/10 LOCATION: Bilateral chest FINDINGS: PA and lateral views of the chest demonstrate moderate-sized hiatal hernia. Small pleural effusions. Mild basilar airspace disease. No pneumothorax. Mild kyphosis. CONCLUSION: 1. Mild basilar opacity, probably atelectasis with small pleural effusions. Moderate-sized hiatal her frederick. Esteban Sage MD on January 31, 2018 at 11:22 Board Certified Radiologist. This report was verified electronically.
--- NOTE | 2018-01-31 11:37 | RADRPT ---
EXAM DATE/TIME: 01/31/2018 10:33 [facility] COMPARISON: No previous studies available for comparison. INDICATIONS : Constipation. MEDICAL HISTORY : Hypertension. Chronic obstructive pulmonary disease. Parkinson's SURGICAL HISTORY : Coronary artery stent. Cholecystectomy. ENCOUNTER: Subsequent ACUITY: 3 days PAIN SCORE: 0/10 LOCATION: Abdomen. FINDINGS: Supine view of the abdomen was performed. Nonobstructed bowel gas pattern. No pneumoperitoneum. Super ficial skin neli overlie the right pelvis. Surgical clips in the right upper abdominal quadrant nation ggest prior cholecystectomy. Mild atelectasis or early infiltrate in both lung bases. Questionable ai r density over the central portion of the cardiac shadow suggesting hiatal hernia. Compression screw and medullary buck traversing the right hip. Osseous structures are otherwise grossly intact. CONCLUSION: 1. Radiographically benign abdomen without obstruction or pneumoperitoneum. 2. Bibasilar atelectasis or early infiltrates. 3. Possible moderately large hiatal hernia. . Tj Burroughs MD on January 31, 2018 at 11:32 Board Certified Radiologist. This report was verified electronically.
[2018-01-31] MEDS: LACTULOSE SYRUP 20 GM/30 ML CUP PO PRN (13:27)
--- NOTE | 2018-01-31 13:34 | HHI.FPPN ---
Subjective Remarks No acute events overnight. Patient states that she has "belly breathing" and is not sure why. She denies chest pain or abdominal pain. She is complaining of significant amount of gas, has not had bowel movement since procedure. She says she was able to sleep last night with no difficulties. (Ernst Chun MD R1) Objective Vitals Vital Signs Date Time Temp Pulse Resp B/P (MAP) Pulse Ox O2 Delivery O2 Flow Rate FiO2 01/31/18 12:03 98.1 92 19 161/74 (103) 94 01/31/18 08:00 97.9 83 17 187/85 (119) 92 01/31/18 04:00 97.6 88 18 185/83 (117) 93 01/31/18 00:39 168/80 (109) 01/31/18 00:01 97.7 71 18 182/79 (113) 96 01/30/18 20:00 97.8 83 18 165/79 (107) 95 01/30/18 16:58 98.6 79 17 117/59 (78) 93 01/30/18 16:35 93 Nasal Cannula 2.00 I/O 01/30/18 01/30/18 01/30/18 01/31/18 01/31/18 01/31/18 07:00 15:00 23:00 07:00 15:00 23:00 Intake Total 360 ml 1665 ml 1241 ml Balance 360 ml 1665 ml 1241 ml Intake Oral 360 ml 960 ml 400 ml IV Total 705 ml 841 ml # Voids 3 6 3 # Bowel Movements 0 0 0 (Ernst Chun MD R1) Result Diagram: 01/31/1861701/31/18617 Objective Remarks GENERAL: This is a elderly female, in no acute distress. Breathing more heavily compared to prior exams CARDIOVASCULAR: Regular rate and rhythm without murmurs, gallops, or rubs. Systolic murmur present RESPIRATORY: Clear to auscultation. Diminished breath sounds in bases GASTROINTESTINAL: Abdomen soft, non-tender, hyperactive bowel sounds. MUSCULOSKELETAL: RLE dressing in place, c/d/i. Neurovascularly intact. NEUROLOGICAL: Awake and alert 3. Motor and sensory grossly within normal limits. Normal speech. Procedures IMN right hip fx (Ernst Chun MD R1) A/P Assessment and Plan 87-year-old female with history of Parkinson's disease, hypertension, hypothyroidism presents after a fall. Found to have right hip fracture. Orthopedic surgery consult admission performed IMN on 01/29. Had suicidal ideations and psychiatry was consulted. Started on Seroquel at night. Discharge Planning Pending ortho clerance Will need SNF upon discharge (Ernst Chun MD R1) Problem List: (1) Fracture, intertrochanteric, right femur ICD Codes: S72.141A - Displaced intertrochanteric fracture of right femur, initial encounter for closed fracture Status: Acute Plan: Hip/pelvis x-ray shows intertrochanteric right femoral neck fracture. -Consult orthopedics, appreciate recs POD#2 from IMN -Tylenol, morphine PRN pain -PT/OT -Refused Lovenox, starting Xarelto (2) SOB (shortness of breath) ICD Codes: R06.02 - Shortness of breath Plan: Patient stated that she was "belly breathing" this morning. She can explain why but she was noted to be breathing heavier today Chest x-ray showed mild basilar opacity, probably atelectasis with small pleural effusions. KUB benign abdomen without obstruction or pneumoperitoneum. Significant amount of gas noted Patient noted to have elevated CK-MB of 4.7 on 01/31, troponin 0 0.02. Suspect the CK-MB to be elevated due to being down for prolonged period of time prior to admission. We will trend troponins to ensure no ischemia Ordering scheduled duo nebs, EZ Pap Encouraged patient/nurse to use PRNs to help patient have a bowel movement (3) Suicidal ideation ICD Codes: R45.851 - Suicidal ideations Status: Acute Plan: Patient expressed hopelessness and suicidal ideation on 01/29 Psychiatry consulted -Recommended starting Seroquel at bedtime -Seroquel 12.5mg HS started Patient refuses mechanical fitter consult (4) Fall ICD Codes: W19.XXXA - Unspecified fall, initial encounter Status: Acute Plan: Was approximately on the ground for about 18 hours. CPK on admission was 397 BUN 19, creatinine 0.71. History of Parkinson's disease Head CT was wnl CPK stable, downtrending -Normal saline at 1.5 maintenance. -Neuro checks -PT/OT (5) Elevated LFTs ICD Codes: R79.89 - Other specified abnormal findings of blood chemistry Status: Acute Plan: AST 164 and ALT 74 on admission. Pt endorses occasional alcohol use. No history of liver disease Downtrending -Follow lab values (6) Parkinson disease ICD Codes: G20 - Parkinson's disease Status: Chronic Plan: Continue home Sinemet (7) HTN (hypertension) ICD Codes: I10 - Essential (primary) hypertension Status: Chronic Plan: Continue home meds, verapamil (8) Hypothyroid ICD Codes: E03.9 - Hypothyroidism, unspecified Status: Chronic Plan: Continue home synthroid. TSH mildly elevated (9) FEN Status: Acute Plan: Fluids: NS @ 150mls/hr Electrolyte: wnl, replace PRN Nutrition: Regular diet DVT ppx: Xarelto Patient was being noncompliant with labs today. We discussed with her about the importance of lab. She still stated that she was not going to do some of the blood work, even if we recommended for her to be completed. I have reviewed the patients past medical/surgical and social histories and updated as appropriate. Parts of this note were created using [employer] voice recognition software program. While efforts were made to correct any mistakes made by this software, some mistakes, errors, and omissions may remain in the final note that were not caught when the note was originally created. Plan of care was discussed and agreed upon with the patient as specifically documented in the above note. An opportunity to ask questions with explanation was provided. Medications were reviewed and discussed as appropriate including side effects and risks vs. benefit. Pt. was instructed should any symptoms worsen he should call for an MERY appointment or report to the emergency department for further evaluation. Patient voiced understanding on all information reviewed and discussed. (Ernst Chun MD R1) Problem List: (1) Fracture, intertrochanteric, right femur ICD Codes: S72.141A - Displaced intertrochanteric fracture of right femur, initial encounter for closed fracture Status: Acute Plan: Hip/pelvis x-ray shows intertrochanteric right femoral neck fracture. -Consult orthopedics, appreciate recs POD#2 from IMN -Tylenol, morphine PRN pain -PT/OT -Refused Lovenox, starting Xarelto (2) SOB (shortness of breath) ICD Codes: R06.02 - Shortness of breath Plan: Patient stated that she was "belly breathing" this morning. She can explain why but she was noted to be breathing heavier today Chest x-ray showed mild basilar opacity, probably atelectasis with small pleural effusions. KUB benign abdomen without obstruction or pneumoperitoneum. Significant amount of gas noted Patient noted to have elevated CK-MB of 4.7 on 01/31, troponin 0 0.02. Suspect the CK-MB to be elevated due to being down for prolonged period of time prior to admission. We will trend troponins to ensure no ischemia Ordering scheduled duo nebs, EZ Pap Encouraged patient/nurse to use PRNs to help patient have a bowel movement (3) Suicidal ideation ICD Codes: R45.851 - Suicidal ideations Status: Acute Plan: Patient expressed hopelessness and suicidal ideation on 01/29 Psychiatry consulted -Recommended starting Seroquel at bedtime -Seroquel 12.5mg HS started Patient refuses mechanical fitter consult (4) Fall ICD Codes: W19.XXXA - Unspecified fall, initial encounter Status: Acute Plan: Was approximately on the ground for about 18 hours. CPK on admission was 397 BUN 19, creatinine 0.71. History of Parkinson's disease Head CT was wnl CPK stable, downtrending -Normal saline at 1.5 maintenance. -Neuro checks -PT/OT (5) Elevated LFTs ICD Codes: R79.89 - Other specified abnormal findings of blood chemistry Status: Acute Plan: AST 164 and ALT 74 on admission. Pt endorses occasional alcohol use. No history of liver disease Downtrending -Follow lab values (6) Parkinson disease ICD Codes: G20 - Parkinson's disease Status: Chronic Plan: Continue home Sinemet (7) HTN (hypertension) ICD Codes: I10 - Essential (primary) hypertension Status: Chronic Plan: Continue home meds, verapamil (8) Hypothyroid ICD Codes: E03.9 - Hypothyroidism, unspecified Status: Chronic Plan: Continue home synthroid. TSH mildly elevated (9) FEN Status: Acute Plan: Fluids: NS @ 150mls/hr Electrolyte: wnl, replace PRN Nutrition: Regular diet DVT ppx: Xarelto See the residents documentation for details. I saw and evaluated the patient regarding the colvin portions of this evaluation and agree with the residents findings and plans as written. Parts of this note were created using [employer] voice recognition software program. While efforts were made to correct any mistakes made by this software, some mistakes, errors, and omissions may remain in the final note that were not caught when the note was originally created. Plan of care was discussed and agreed upon with the patient as specifically documented in the above note. An opportunity to ask questions with explanation was provided. Patient voiced understanding on all information reviewed and discussed. (Scar Whitten MD) Problem Qualifiers (1) Fall: Qualified Codes: W19.XXXA - Unspecified fall, initial encounter (2) HTN (hypertension): Qualified Codes: I10 - Essential (primary) hypertension (3) Hypothyroid: Qualified Codes: E89.0 - Postprocedural hypothyroidism Ernst Chun MD R1 January 31, 2018 13:34 Scar Whitten MD January 31, 2018 14:52
[2018-01-31] MEDS: RESP: ALBUTEROL 2.5 MG/IPRATROPIUM 0.5 MG NEB (SCH) NEB ×3 (13:35→21:03)
[2018-01-31] MEDS: MAGNESIUM HYDROXIDE SUSP 30 ML CUP PO PRN (21:24)
[2018-01-31] MEDS: QUEtiapine FUMARATE 25 MG TAB PO SCH (21:24)
[2018-02-01 00:13] VITALS: BP 165/76
[2018-02-01] MEDS: SODIUM CHLOR 0.9% 1000 ML INJ 1,000 ML IV SCH (02:33)
[2018-02-01 03:42] VITALS: BP 181/84; PULSE 91; RESP 17; TEMP 98.9; O2SAT 92
[2018-02-01] MEDS: RESP: ALBUTEROL 2.5 MG/IPRATROPIUM 0.5 MG NEB (SCH) NEB ×2 (04:00→09:08)
[2018-02-01] MEDS: LEVOTHYROXINE SODIUM 75 MCG TAB PO SCH (05:31)
[2018-02-01 06:14] LABS: BASOPHIL % 0.5 % (0.0-2.0); EOSINOPHIL # 0.4 TH/MM3 (0-0.4); EOSINOPHIL % 5.5 % (0.0-4.0); HEMATOCRIT 31.1 % (35.0-46.0); HEMOGLOBIN 10.3 GM/DL (11.6-15.3); LYMPH % 12.2 % (9.0-44.0); LYMPHOCYTE # 0.9 TH/MM3 (1.0-4.8); MEAN CELL VOLUME 87.5 FL (80.0-100.0); MEAN CORPUSCULAR HGB CONC 33.2 % (32.0-36.0); MEAN PLATELET VOLUME 9.9 FL (7.0-11.0); MONO % 10.3 % (0.0-8.0); MONOCYTE # 0.7 TH/MM3 (0-0.9); NEUT % 71.5 % (16.0-70.0); PLATELET COUNT 156 TH/MM3 (150-450); RED BLOOD COUNT 3.55 MIL/MM3 (4.00-5.30); RED CELL DISTRIBUTION WIDTH 15.4 % (11.6-17.2)
[2018-02-01 06:32] LABS: ALBUMIN 2.2 GM/DL (3.4-5.0); ALT (GPT) 43 U/L (10-53); AST (GOT) 24 U/L (15-37); BICARBONATE 29.3 MEQ/L (21.0-32.0); BLOOD UREA NITROGEN 11 MG/DL (7-18); CALCIUM 7.8 MG/DL (8.5-10.1); CHLORIDE 107 MEQ/L (98-107); CREATININE 0.51 MG/DL (0.50-1.00); GLOMERULAR FILTRATION RATE 115 ML/MIN (>89); GLUCOSE,RANDOM 130 MG/DL (74-106); SODIUM (NA) 144 MEQ/L (136-145)
[2018-02-01 06:33] LABS: ALKALINE PHOSPHATASE 96 U/L (45-117); TOTAL BILIRUBIN ADULT 0.4 MG/DL (0.2-1.0); TOTAL PROTEIN 5.4 GM/DL (6.4-8.2)
[2018-02-01] MEDS ORDERED: POTASSIUM CHLORIDE 20 MEQ CONTROLLED RELEASE TAB PO ONE (07:15)
[2018-02-01] MEDS: MAGNESIUM HYDROXIDE SUSP 30 ML CUP PO PRN (08:55)
[2018-02-01] MEDS: LACTULOSE SYRUP 20 GM/30 ML CUP PO PRN (08:55)
[2018-02-01] MEDS ORDERED: TRAM50 PO (08:56)
[2018-02-01] MEDS: traMADol HCL 50 MG TAB PO PRN (08:56)
[2018-02-01] MEDS: VERAPAMIL HCL 180 MG SUSTAINED RELEASE TAB PO SCH (08:56)
[2018-02-01] MEDS: RIVAROXABAN 10 MG TAB PO SCH (08:56)
[2018-02-01] MEDS: TOLTERODINE TARTRATE 2 MG CAP LA PO SCH (08:57)
[2018-02-01] MEDS: CARBIDOPA/LEVODOPA 25 MG/100 MG TAB PO SCH ×2 (08:57→12:14)
[2018-02-01] MEDS: DOCUSATE SODIUM 50 MG/SENNA 8.6 MG TAB PO SCH (08:57)
[2018-02-01] MEDS: SODIUM CHLORIDE 0.9% FLUSH 10 ML FLUSH IV FLUSH SCH (08:57)
[2018-02-01] MEDS ORDERED: SOD PHOSPHATE/SOD BIPHOSPHATE (ADULT) ENEMA 133ML RECTAL ONE (09:00)
[2018-02-01 09:08] VITALS: O2SAT 94
[2018-02-01] MEDS ORDERED: XARE10TA PO (09:10)
--- NOTE | 2018-02-01 09:11 | HHI.DCPOC ---
Discharge Care Plan Diagnosis: (1) Fracture, intertrochanteric, right femur Goals to Promote Your Health * To prevent worsening of your condition and complications * To maintain your health at the optimal level Directions to Meet Your Goals Take your medications as prescribed Follow your dietary instruction Follow activity as directed Keep your appointments as scheduled Take your immunizations and boosters as scheduled If your symptoms worsen call your PCP, if no PCP go to Urgent Care Center or Emergency Room Smoking is Dangerous to Your Health. Avoid second hand smoke Call the 24-hour hour crisis hotline for domestic abuse at Urban Salvador MD R3 February 01, 2018 09:11
[2018-02-01 09:13] VITALS: BP 188/84; PULSE 91; RESP 18; TEMP 98.4; O2SAT 93
--- NOTE | 2018-02-01 09:35 | HHI.FPPN ---
Subjective Remarks Patient states she is having abdominal discomfort b/c she has not had a bowel movement in a few days. However, she is also asking for a bedpan so she can have a bowel movement now. When we left the room, the patient had 2 bowel movements without need for an enema. She denies fevers, chills, headache. She feels ready to go to [facility]. Spoke with the son and updated him on her status. He agrees with plan. (Urban Salvador MD R3) Objective Vitals Vital Signs Date Time Temp Pulse Resp B/P (MAP) Pulse Ox O2 Delivery O2 Flow Rate FiO2 02/01/18 09:13 98.4 91 18 188/84 (118) 93 02/01/18 09:08 94 Nasal Cannula 3.00 02/01/18 03:42 98.9 91 17 181/84 (116) 92 02/01/18 00:13 165/76 (105) 01/31/18 23:08 97.9 91 17 189/79 (115) 92 01/31/18 19:40 97.9 90 17 181/78 (112) 97 01/31/18 16:27 98.0 81 18 170/77 (108) 93 01/31/18 16:11 95 Nasal Cannula 3.00 01/31/18 12:03 98.1 92 19 161/74 (103) 94 I/O 01/31/18 01/31/18 01/31/18 02/01/18 02/01/18 02/01/18 07:00 15:00 23:00 07:00 15:00 23:00 Intake Total 1241 ml 900 ml 480 ml Balance 1241 ml 900 ml 480 ml Intake Oral 400 ml 900 ml 480 ml IV Total 841 ml # Voids 3 4 4 # Bowel Movements 0 0 (Urban Salvador MD R3) Result Diagram: 02/01/18 0516 02/01/18 0516 Objective Remarks GENERAL: This is a elderly female, in no acute distress. CARDIOVASCULAR: Regular rate and rhythm without murmurs, gallops, or rubs. Systolic murmur present RESPIRATORY: Clear to auscultation. Diminished breath sounds in bases GASTROINTESTINAL: Abdomen soft, non-tender, hyperactive bowel sounds. MUSCULOSKELETAL: RLE dressing in place, c/d/i. Neurovascularly intact. NEUROLOGICAL: Awake and alert 3. Motor and sensory grossly within normal limits. Normal speech. Procedures IMN right hip fx (Urban Salvador MD R3) A/P Assessment and Plan 87-year-old female with history of Parkinson's disease, hypertension, hypothyroidism presents after a fall. Found to have right hip fracture. Orthopedic surgery consult admission performed IMN on 01/29. Had suicidal ideations and psychiatry was consulted. Discharge Planning Likely today to SNF (Urban Salvador MD R3) Problem List: (1) Fracture, intertrochanteric, right femur ICD Codes: S72.141A - Displaced intertrochanteric fracture of right femur, initial encounter for closed fracture Status: Acute Plan: Hip/pelvis x-ray shows intertrochanteric right femoral neck fracture. -Consult orthopedics, appreciate recs POD#3 from IMN -Cleared from ortho standpoint -Tylenol, tramadol PRN pain -PT/OT -Refused Lovenox, on Xarelto (2) Elevated CK ICD Codes: R74.8 - Abnormal levels of other serum enzymes Status: Acute Plan: Elevated ck and ck-mb Concern for rhabdo on admission, but no longer concerned for rhabdo Given IV fluids aggessively and CK has trended down. No Kidney problems (3) Constipation ICD Codes: K59.00 - Constipation, unspecified Status: Acute Plan: Patient had bowel movement today Continue bowel regimen May need enema prn consider opioid induced constipation and treat accordingly as outpatient (4) Suicidal ideation ICD Codes: R45.851 - Suicidal ideations Status: Acute Plan: Patient expressed hopelessness and suicidal ideation on 01/29 Psychiatry consulted -Recommended starting Seroquel at bedtime -Seroquel 12.5mg HS started Patient refuses biomedical engineering supervisor consult (5) Fall ICD Codes: W19.XXXA - Unspecified fall, initial encounter Status: Acute Plan: Was approximately on the ground for about 18 hours. CPK on admission was 397 BUN 19, creatinine 0.71. History of Parkinson's disease Head CT was wnl CPK stable, downtrending -Neuro checks -PT/OT (6) Elevated LFTs ICD Codes: R79.89 - Other specified abnormal findings of blood chemistry Status: Resolved Plan: AST 164 and ALT 74 on admission. Pt endorses occasional alcohol use. No history of liver disease Downtrending and now normal -Follow lab values (7) Parkinson disease ICD Codes: G20 - Parkinson's disease Status: Chronic Plan: Continue home Sinemet (8) HTN (hypertension) ICD Codes: I10 - Essential (primary) hypertension Status: Chronic Plan: Continue home meds, verapamil (9) Hypothyroid ICD Codes: E03.9 - Hypothyroidism, unspecified Status: Chronic Plan: Continue home synthroid. TSH mildly elevated (10) FEN Status: Acute Plan: Fluids:tolerating PO Electrolyte: wnl, replace PRN Nutrition: Regular diet DVT ppx: Xarelto (Urban Salvador MD R3) Problem List: (1) Fracture, intertrochanteric, right femur ICD Codes: S72.141A - Displaced intertrochanteric fracture of right femur, initial encounter for closed fracture Status: Acute Plan: Hip/pelvis x-ray shows intertrochanteric right femoral neck fracture. -Consult orthopedics, appreciate recs POD#3 from IMN -Cleared from ortho standpoint -Tylenol, tramadol PRN pain -PT/OT -Refused Lovenox, on Xarelto (2) Elevated CK ICD Codes: R74.8 - Abnormal levels of other serum enzymes Status: Acute Plan: Elevated ck and ck-mb Concern for rhabdo on admission, but no longer concerned for rhabdo Given IV fluids aggessively and CK has trended down. No Kidney problems (3) Constipation ICD Codes: K59.00 - Constipation, unspecified Status: Acute Plan: Patient had bowel movement today Continue bowel regimen May need enema prn consider opioid induced constipation and treat accordingly as outpatient (4) Suicidal ideation ICD Codes: R45.851 - Suicidal ideations Status: Acute Plan: Patient expressed hopelessness and suicidal ideation on 01/29 Psychiatry consulted -Recommended starting Seroquel at bedtime -Seroquel 12.5mg HS started Patient refuses biomedical engineering supervisor consult (5) Fall ICD Codes: W19.XXXA - Unspecified fall, initial encounter Status: Acute Plan: Was approximately on the ground for about 18 hours. CPK on admission was 397 BUN 19, creatinine 0.71. History of Parkinson's disease Head CT was wnl CPK stable, downtrending -Neuro checks -PT/OT (6) Elevated LFTs ICD Codes: R79.89 - Other specified abnormal findings of blood chemistry Status: Resolved Plan: AST 164 and ALT 74 on admission. Pt endorses occasional alcohol use. No history of liver disease Downtrending and now normal -Follow lab values (7) Parkinson disease ICD Codes: G20 - Parkinson's disease Status: Chronic Plan: Continue home Sinemet (8) HTN (hypertension) ICD Codes: I10 - Essential (primary) hypertension Status: Chronic Plan: Continue home meds, verapamil (9) Hypothyroid ICD Codes: E03.9 - Hypothyroidism, unspecified Status: Chronic Plan: Continue home synthroid. TSH mildly elevated (10) FEN Status: Acute Plan: Fluids:tolerating PO Electrolyte: wnl, replace PRN Nutrition: Regular diet DVT ppx: Xarelto See the residents documentation for details. I saw and evaluated the patient regarding the colvin portions of this evaluation and agree with the residents findings and plans as written. Parts of this note were created using [employer] voice recognition software program. While efforts were made to correct any mistakes made by this software, some mistakes, errors, and omissions may remain in the final note that were not caught when the note was originally created. Plan of care was discussed and agreed upon with the patient as specifically documented in the above note. An opportunity to ask questions with explanation was provided. Patient voiced understanding on all information reviewed and discussed. (Scar Whitten MD) Problem Qualifiers (1) Fracture, intertrochanteric, right femur: Qualified Codes: S72.144D - Nondisplaced intertrochanteric fracture of right femur, subsequent encounter for closed fracture with routine healing (2) Constipation: Qualified Codes: K59.00 - Constipation, unspecified (3) Fall: Qualified Codes: W19.XXXA - Unspecified fall, initial encounter (4) HTN (hypertension): Qualified Codes: I10 - Essential (primary) hypertension (5) Hypothyroid: Qualified Codes: E89.0 - Postprocedural hypothyroidism Urban Salvador MD R3 February 01, 2018 09:35 Scar Whitten MD February 01, 2018 14:37
[2018-02-01 12:54] VITALS: BP 132/78; PULSE 93; RESP 18; TEMP 98.2; O2SAT 93
[2018-02-01 16:00] VITALS: BP 111/62; PULSE 71; RESP 18; TEMP 98.3; O2SAT 97
== END 2018-02-01 14:16 | DRG 481 ==
LOC: NEPC 08:47 → NEDA 10:41 → N06A 12:44
PROVIDERS: ADMIT Family Medicine; ATTEND Family Medicine
PROC: 0QS606Z Reposition Right Upper Femur with Intramedullary Internal Fixation Device, Open Approach (ICD-10-PCS; principal; 2018-01-29 15:14)
DX: S72.144A Nondisplaced intertrochanteric fracture of right femur, initial encounter for closed fracture (principal); R45.851 Suicidal ideations; J90 Pleural effusion, not elsewhere classified; G20 Parkinson's disease; J44.9 Chronic obstructive pulmonary disease, unspecified; J98.11 Atelectasis; I10 Essential (primary) hypertension; E89.0 Postprocedural hypothyroidism; Z95.5 Presence of coronary angioplasty implant and graft; R32 Unspecified urinary incontinence; R79.89 Other specified abnormal findings of blood chemistry; K59.00 Constipation, unspecified; F43.21 Adjustment disorder with depressed mood; W01.0XXA Fall on same level from slipping, tripping and stumbling without subsequent striking against object, initial encounter; Y92.009 Unspecified place in unspecified non-institutional (private) residence as the place of occurrence of the external cause; Z81.8 Family history of other mental and behavioral disorders; Z91.19 Patient's noncompliance with other medical treatment and regimen
CPT/HCPCS: 70450; 71045; 71046; 73502; 74018; 76000; 80048; 80053; 81001; 82550; 82552; 84443; 84484; 85025; 85027; 85610; 85730; 86850; 86900; 86901; 93005; 94150; 94640; 94664; 96361; 96374; 96375; C1713; J0131; J0690; J1100; J1170; J1580; J2270; J2370; J2405; J3010; J3370; J7030; P9612